=== PATIENT | male | born 1955 | race Caucasian/White ===

== ENCOUNTER 2022-05-06 08:25 | Inpatient (IN) | payer MEDICARE, MEDICAID, SELFPAY ==
[2022-05-06] VITALS (7 sets, daily range): BP systolic 114–161; BP diastolic 59–93; PULSE 115–134; RESP 16–22; TEMP 36.6–37.1; O2SAT 94–97
--- NOTE | 2022-05-06 | ECG_ITS ---
Test Reason : HIGH HEART RATE Blood Pressure : / mmHG Vent. Rate : 132 BPM Atrial Rate : 132 BPM P-R Int : 158 ms QRS Dur : 088 ms QT Int : 278 ms P-R-T Axes : 047 050 062 degrees QTc Int : 411 ms Sinus tachycardia Otherwise normal ECG When compared with ECG of 06-MAY-2022 09:08, No significant changes seen Referred By: Jax Huntley Electronically Signed By:CHARO VEGAS
--- NOTE | ~2022-05-06 | XR_ITS ---
EXAMINATION: CHEST AND LEFT HIP. WITH PELVIS CLINICAL INFORMATION: Left hip pain after fall. COMPARISON: None TECHNIQUE: 2 views chest and AP pelvis and left of 4 views. FINDINGS: AP pelvis and left hip: There is fracture left femoral neck with medial angulation. There is no dislocation. The right hip joint space is maintained normal. SI joints are normal. No additional fracture seen involving the pelvic bone. CHEST: There is elevated left hemidiaphragm and underlying atelectasis. Rest lungs are clear. The heart size and pulmonary vascularity is normal. No bony abnormality seen. XR/XR chest 1V IMPRESSION: The left femoral neck fracture with medial angulation. No dislocation. No acute process seen in the chest. The left diaphragm is elevated
--- NOTE | ~2022-05-06 | CT_ITS ---
EXAMINATION: CT BRAIN AND CT CERVICAL SPINE WITHOUT CONTRAST. CLINICAL INFORMATION: Unwitnessed fall COMPARISON: None TECHNIQUE: 5 mm thin axial and reformatted 2 mm thin coronal and sagittal images of brain were obtained. Subsequently 3 mm thin and axial 2 mm thin sagittal coronal images of cervical spine were obtained. DLP 883. FINDINGS: Brain: There is no acute intra-axial, extra-axial bleed, masses or midline shift there is no acute infarction evolution. There is no edema. There is moderate cerebellar volume loss also visualized is loss of right temporal lobe volume likely old insult. There is mild dilatation of right temporal horn. The lateral ventricles are otherwise symmetrical but slightly prominent. Bone windows reveal no calvarial abnormality. There is no scalp soft tissue abnormality.. Cervical spine: There is normal cervical lordosis. The vertebral heights, alignment and disc heights are normal. No visible acute fracture, dislocation or subluxation seen. The craniovertebral junction and the C1-C2 alignment is normal. There is mild ventral spondylosis C6-7 and C7-T1 disc levels. CT/CT cervical spine wo con IMPRESSION: No acute intracranial process seen. Moderate cerebral are atrophy. Right temporal lobe atrophy likely secondary to old injury or insult. There is no acute fracture or dislocation cervical spine.
--- NOTE | ~2022-05-06 | CT_ITS ---
EXAMINATION: CT BRAIN AND CT CERVICAL SPINE WITHOUT CONTRAST. CLINICAL INFORMATION: Unwitnessed fall COMPARISON: None TECHNIQUE: 5 mm thin axial and reformatted 2 mm thin coronal and sagittal images of brain were obtained. Subsequently 3 mm thin and axial 2 mm thin sagittal coronal images of cervical spine were obtained. DLP 883. FINDINGS: Brain: There is no acute intra-axial, extra-axial bleed, masses or midline shift there is no acute infarction evolution. There is no edema. There is moderate cerebellar volume loss also visualized is loss of right temporal lobe volume likely old insult. There is mild dilatation of right temporal horn. The lateral ventricles are otherwise symmetrical but slightly prominent. Bone windows reveal no calvarial abnormality. There is no scalp soft tissue abnormality.. Cervical spine: There is normal cervical lordosis. The vertebral heights, alignment and disc heights are normal. No visible acute fracture, dislocation or subluxation seen. The craniovertebral junction and the C1-C2 alignment is normal. There is mild ventral spondylosis C6-7 and C7-T1 disc levels. CT/CT head/brain wo con IMPRESSION: No acute intracranial process seen. Moderate cerebral are atrophy. Right temporal lobe atrophy likely secondary to old injury or insult. There is no acute fracture or dislocation cervical spine.
--- NOTE | ~2022-05-06 | XR_ITS ---
EXAMINATION: XR CHEST CLINICAL INFORMATION: Shortness of breath. COMPARISON: 05/06/2022 chest radiograph. TECHNIQUE: Frontal view of the chest was obtained. FINDINGS: There is minimal blunting of the costophrenic angles bilaterally with mild superjacent linear markings. The upper lung rosales are clear. Mild biapical pleural thickening is noted. The heart and mediastinal structures are unremarkable. Mild thoracolumbar scoliosis. XR/XR chest 1V IMPRESSION: Mild bibasilar atelectasis. Very small pleural effusions cannot be excluded.
--- NOTE | ~2022-05-06 | XR_ITS ---
EXAMINATION: CHEST AND LEFT HIP. WITH PELVIS CLINICAL INFORMATION: Left hip pain after fall. COMPARISON: None TECHNIQUE: 2 views chest and AP pelvis and left of 4 views. FINDINGS: AP pelvis and left hip: There is fracture left femoral neck with medial angulation. There is no dislocation. The right hip joint space is maintained normal. SI joints are normal. No additional fracture seen involving the pelvic bone. CHEST: There is elevated left hemidiaphragm and underlying atelectasis. Rest lungs are clear. The heart size and pulmonary vascularity is normal. No bony abnormality seen. XR/XR hip LT w PEL1V IMPRESSION: The left femoral neck fracture with medial angulation. No dislocation. No acute process seen in the chest. The left diaphragm is elevated
--- NOTE | ~2022-05-06 | CT_ITS ---
EXAMINATION: CT ANGIOGRAM OF THE CHEST WITH AND WITHOUT CONTRAST (CT PULMONARY ANGIOGRAM FOR PE) CLINICAL INFORMATION: Reason for Exam tachycardia in backdrop of femur fx COMPARISON: None TECHNIQUE: Prior to contrast administration, noncontrast localization images were obtained. Subsequently, multidetector volumetric imaging was performed from the thoracic inlet to below the diaphragms following the administration of 65 mL Omnipaque 350 intravenous contrast. No contrast reaction reported Sagittal, coronal, and MIP oblique sagittal reformatted images were obtained on the CT workstation, uploaded to PACS, and reviewed. This CT examination was performed using dose optimization techniques as appropriate, variously including the following: *Automated exposure control *Adjustment of mA and/or kV according to patient size (this includes techniques or standardized protocols for targeted exams where dose is matched to indication/reason for exam; i.e. extremities or head) *Use of iterative reconstruction technique Total exam dose-length product 352 mGy-cm FINDINGS: QUALITY OF STUDY/CONTRAST BOLUS: Suboptimal. Respiratory motion artifact and suboptimal opacification of the pulmonary arterial tree. PULMONARY ARTERIES: Question of filling defects versus artifact in segmental branches the bilateral upper lobes, lingula, right middle lobe (please see infante images). No definite or more central pulmonary emboli. Normal caliber central pulmonary trunk measuring 2.7 cm in diameter. THORACIC AORTA: No aneurysm or dissection. LUNG: Low lung volumes with bibasilar atelectasis. No suspicious pulmonary nodule or mass. Central airways are grossly clear. PLEURA: No pleural effusion or pneumothorax. MEDIASTINUM: No cardiomegaly. No pericardial effusion. No mediastinal or hilar lymphadenopathy. No evidence of septal bowing or right heart strain. CHEST WALL/AXILLA: No axillary or internal mammary lymphadenopathy. OSSEOUS STRUCTURES: No acute or suspicious osseous abnormality. UPPER ABDOMEN: Calcified granuloma in the anterior right liver lobe. Status post cholecystectomy. Surgical clips in the gallbladder fossa. Possible small hiatal hernia. Remainder of the visualized upper abdominal viscera are grossly unremarkable. Chronic left clavicle fracture deformity. No acute fracture or suspicious osseous lesion. Multiple vertebral body hemangiomas are noted. Mild disc degenerative change in the thoracic and lower cervical spine. No reflux of contrast into the hepatic veins to suggest elevated right heart pressures. CT/CT angio chest PE protocol IMPRESSION: 1. Suboptimal evaluation for segmental pulmonary emboli for reasons as described. There are equivocal filling defects in segmental pulmonary arterial branches bilaterally which could be artifactual versus small nonocclusive emboli. 2. No more central/definite pulmonary embolus. 3. Low lung volumes with bibasilar atelectasis. VTE: indeterminate
--- NOTE | ~2022-05-06 | XR_ITS ---
EXAMINATION: XR HIP, LEFT CLINICAL INFORMATION: Left hip pain. COMPARISON: None TECHNIQUE: Single AP view of the left hip. FINDINGS: There is a subtle overlapping osseous fragment at the greater tuberosity which may represent the remnant of the previously seen intertrochanteric fracture now status post hemiarthroplasty. The head of the hemiarthroplasty prosthesis is appropriately situated. There is relatively deep placement of the femoral component on these images. Left innominate bone is intact. Bones are osteopenic. Lateral skin trace and soft tissue swelling. XR/XR hip LT 1V IMPRESSION: Status post left hemiarthroplasty without evidence of postop dislocation. A small residual fracture line suspected at the greater trochanter.
--- NOTE | ~2022-05-06 | NM_ITS ---
EXAMINATION: NM LUNG IMAGE PERFUSION CLINICAL INFORMATION: SOB and tachycardia COMPARISON: None TECHNIQUE: Following intravenous administration of 4 mCi of 99m Tc MAA, imaging of both lungs were obtained multiple projections. FINDINGS: On perfusion imaging there is normal flow seen to all segments of the lungs without any focal segmental, subsegmental or nonsegmental defect. The soft tissues are normal. Ventilation study was not performed. NM/NM pul perfusion IMPRESSION: Unremarkable perfusion exam.
--- NOTE | 2022-05-06 09:07 | ECG_ITS ---
Test Reason : fall Blood Pressure : / mmHG Vent. Rate : 115 BPM Atrial Rate : 115 BPM P-R Int : 170 ms QRS Dur : 094 ms QT Int : 318 ms P-R-T Axes : 069 -62 078 degrees QTc Int : 439 ms Sinus tachycardia Leftward axis Borderline ECG No previous ECGs available Referred By: Janice Sharp Electronically Signed By:CHARO VEGAS
--- NOTE | 2022-05-06 09:15 | ED_ITS ---
HPI - Fall General Chief Complaint: Fall Stated Complaint: HIP S/P FALL PER EMS Time Seen by Provider: 05/06/22 08:54 Source: patient and other (Caregiver) Mode of arrival: EMS Limitations: physical limitation (MR) History of Present Illness HPI Narrative: Patient presents to the emergency department with his caregiver via EMS for evaluation after a fall. Per patient's senior resident care director, she found him on the floor in his bedroom this morning, patient noted to have both legs into 1 patient with his pafito, reporting pain to the left hip, was unable to get up. Patient denies hitting his head or having loss of consciousness, however caregiver does report that he has a history of MR and epilepsy. He is unsure as to why he fell. Currently his only complaint is pain to the left hip and thigh with movement of the leg. His caregiver provided Tylenol at home. MD complaint: fall Onset (ago): hour(s) Fall witnessed: no Place fall occurred: home Related Data Home Medications Medication Instructions Recorded Confirmed lacosamide 200 mg tablet 1 tab PO BID 05/06/22 05/06/22 levetiracetam 1,000 mg tablet 1 tab PO BID 05/06/22 05/06/22 levetiracetam 750 mg tablet 1 tab PO BID 05/06/22 05/06/22 multivitamin with folic acid 400 1 tab PO DAILY 05/06/22 05/06/22 mcg tablet (Daily-[place] (with folic acid)) omeprazole 40 mg capsule,delayed 1 cap PO DAILY 05/06/22 05/06/22 release trazodone 100 mg tablet 1 tab PO BEDTIME 05/06/22 05/06/22 Allergies Allergy/AdvReac Type Severity Reaction Status Date / Time No Known Allergies Allergy Verified 05/06/22 09:00 Review of Systems Review of Systems: Constitutional: No weight loss. No fever. No chills. No weakness. No fatigue. Skin: No rash. No itching. Cardiovascular: No chest pain. No chest pressure. No palpitations. No pedal edema. Respiratory: No shortness of breath. No cough. No sputum production. Gastrointestinal: No anorexia. No nausea. No vomiting. No diarrhea. No abdominal pain. Genitourinary: No burning micturition. No urinary frequency. No incontinence. Neurologic: No headache. No dizziness. No pre-syncope/ syncope. No unilateral weakness. No ataxia. No numbness. No tingling. No change in bowel or bladder control. Musculoskeletal: No muscle pain. No back pain. Positive hip pain. No stiffness. Endocrine: No polyuria. No polydipsia. [facility] Past Medical History Attestation statement: The following information was validated with the patient. Source: old records reviewed Medical History (Updated 05/06/22 @ 13:01 by Yoshi Shaikh MD) Fountain esophagus Epilepsy Legally blind Surgical History Hx of cholecystectomy Social History Social History Alcohol intake: never Patient Tobacco Use Status: Never used Tobacco Use of substances other than those prescribed or required for medical reasons: No Advance Directives: Yes Advance Directives on File: Yes Advance Directives Date on File: 04/22/17 Physical Exam Vital Signs: Vital Signs: Last Vital Signs Temp 98.6 F 05/06/22 13:17 Pulse 115 H 05/06/22 16:25 Resp 20 05/06/22 16:25 BP 149/89 H 05/06/22 16:25 Pulse Ox 97 05/06/22 16:25 O2 Del Method 05/06/22 16:25 BMI result Body Mass Index 0.0 Vital signs have been reviewed and appeared to be correct. Hypertensive. Tachycardic.? Respiration rate normal. Temperature normal.? Oxygen saturation normal. Appearance: Alert.?Oriented to person, place and time. No acute distress.?Normal affect. Eyes: Pupils equal, round and reactive to light.? ENT: Pharynx normal.?? Neck: Normal inspection.? Neck supple.??No midline cervical spine tenderness, step-offs, deformities CVS: Heart sounds normal. Sinus tachycardia. Pulses normal.?? Respiratory: No respiratory distress.? Lung sounds clear to auscultation bilaterally?? Abdomen: Soft and non-tender. Normoactive bowel sounds. No pulsatile mass.?? Skin: Skin warm and dry.? Normal skin color.? Extremities: No lower extremity edema.? No calf ttp. Left lower extremity with shortening, no rotation, palpable 2+ DP/PT pulse bilaterally. Palpable tenderness along the left lateral hip and thigh. Neuro: Moves all extremities spontaneously. Sensation intact bilaterally. CN II- XII intact. No focal neuro deficits. NIH Stroke Scale Internal: Initial- Upon Arrival Level of Consciousness: Alert Level of Consciousness Questions: Answers both questions correctly Level of Consciousness Commands: Performs both tasks correctly Best Gaze: Normal Visual: No visual loss Facial Palsy: Normal Motor Arm (Right): No drift Motor Arm (Left): No drift Motor Leg (Right): No drift Motor Leg (Left): No drift Limb Ataxia: Absent Sensory: Normal Best Language: No aphasia Dysarthia: Normal Extinction and Inattention: No abnormality Score: 0 Course Course Course Narrative: Patient is a 66-year-old male with a history of MR, epilepsy presenting to emergency department for evaluation after an unwitnessed fall. Patient is present with his senior project manager who the patient resides with. Lb patient on floor this morning. Patient noted to be mildly hypertensive and tachycardic, EKG reveals a sinus tachycardia nonspecific inverted T wave in aVL. Will obtain CBC to evaluate for leukocytosis/ anemia, CMP to evaluate for abnormal electrolytes /abnormal renal function/ abnormal hepatic function, troponin to evaluate for ischemia/ACS. Chest x-ray to evaluate for consolidation/ infiltrate/ mass/ pulmonary congestion. Urinalysis to evaluate for infection. XR the left hip and pelvis to evaluate for fracture dislocation. CT of the head and cervical spine to evaluate for ICH/SAH/fracture or subluxation Reevaluation(s) Reevaluation #1: XR reveals a left femoral neck fracture with medial angulation, no dislocation. Spoke with Orthopedics Marquis Garcia who recommends admission to medicine service, and will come to evaluate patient. Time: 10:42 Reevaluation #2: CBC reveals a normocytic anemia hemoglobin 12.5 hematocrit 34.4. CMP reveals hyponatremia, mild hyperglycemia, corrected sodium level of 128, no neurological deficits. Given hyponatremia in addition to mild tachycardia, suspect dehydration, patient to receive 1 L normal saline IV fluid. Spoke with hospitalist service, patient for admission to medicine by Dr. Shaikh Time: 12:01 MDM - Fall Medical Records Attestation: I reviewed the patient's medical records. Lab Data Attestation: I reviewed the patient's lab results. Result diagrams: 05/06/22 11:15 05/06/22 11:15 Labs: Lab Results 05/06/22 05/06/2205/06/22 Range/Units 11:15 11:15 11:15 WBC 5.5 (4.8-10.8) X10*3/uL RBC 3.91 L (4.60-5.80) X10*6/uL Hgb 12.5 L (14.0-18.0) g/dl Hct 34.4 L (42.0-52.0) % MCV 88.0 (80.0-98.0) fL MCH 32.0 (27.0-33.0) pg MCHC 36.3 H (31.0-36.0) g/dl RDW 11.9 (11.0-16.0) % Plt Count 281 (160-400) X10*3/uL MPV 8.6 L (9.4-12.4) fL Immature Gran % (Auto) 0.4 (0.0-0.4) % Neut % (Auto) 82.8 H (45-73) % Lymph % (Auto) 5.1 L (20-40) % [place] % (Auto) 11.7 H (2-11) % Eos % (Auto) 0.0 (0-4) % Baso % (Auto) 0.0 (0-2) % Lymph # (Auto) 0.3 L (1.2-4.9) X10*3/uL [place] # (Auto) 0.6 (0.1-1.2) X10*3/uL Eos # (Auto) 0.0 (0.0-0.4) X10*3/uL Baso # (Auto) 0.0 (0.0-0.2) X10*3/uL Abs Immat Gran (auto) 0.02 (0.00-0.03) X10*3/uL Absolute Neuts (auto) 4.5 (2.0-8.3) x10*3/uL Absolute Nucleated RBC 0.000 (0.0-0.012) X10*3/uL Nucleated RBC % (auto) 0.0 (0.0-0.2) /100WBC Sodium 127 L (135-145) mmol/L Potassium 5.1 (3.3-5.1) mmol/L Chloride 92 L (96-108) mmol/L Carbon Dioxide 28 (22-29) mmol/L Anion Gap 12 (12-20) BUN 16 (9-16) mg/dL Creatinine 0.85 (0.5-1.4) mg/dL Estim Creat Clear Calc 0.0 Estimated GFR > 60 Random Glucose 146 H (60-115) mg/dL Calcium 9.2 (8.4-10.2) mg/dL Magnesium 1.9 (1.6-2.6) mg/dL Total Bilirubin 0.5 (0.0-1.0) mg/dL AST 27 (5-37) U/L ALT 21 (0-40) U/L Alkaline Phosphatase 119 H (39-117) U/L Troponin I High Sens < 3.5 (<3.5-35.0) ng/L Total Protein 7.3 (6.5-8.0) g/dL Albumin 4.1 (3.5-5.0) g/dL COVID-19 (THALIA) (Negative) COVID-19 Clin Com 05/06/22 Range/Units 11:15 WBC (4.8-10.8) X10*3/uL RBC (4.60-5.80) X10*6/uL Hgb (14.0-18.0) g/dl Hct (42.0-52.0) % MCV (80.0-98.0) fL MCH (27.0-33.0) pg MCHC (31.0-36.0) g/dl RDW (11.0-16.0) % Plt Count (160-400) X10*3/uL MPV (9.4-12.4) fL Immature Gran % (Auto) (0.0-0.4) % Neut % (Auto) (45-73) % Lymph % (Auto) (20-40) % [place] % (Auto) (2-11) % Eos % (Auto) (0-4) % Baso % (Auto) (0-2) % Lymph # (Auto) (1.2-4.9) X10*3/uL [place] # (Auto) (0.1-1.2) X10*3/uL Eos # (Auto) (0.0-0.4) X10*3/uL Baso # (Auto) (0.0-0.2) X10*3/uL Abs Immat Gran (auto) (0.00-0.03) X10*3/uL Absolute Neuts (auto) (2.0-8.3) x10*3/uL Absolute Nucleated RBC (0.0-0.012) X10*3/uL Nucleated RBC % (auto) (0.0-0.2) /100WBC Sodium (135-145) mmol/L Potassium (3.3-5.1) mmol/L Chloride (96-108) mmol/L Carbon Dioxide (22-29) mmol/L Anion Gap (12-20) BUN (9-16) mg/dL Creatinine (0.5-1.4) mg/dL Estim Creat Clear Calc Estimated GFR Random Glucose (60-115) mg/dL Calcium (8.4-10.2) mg/dL Magnesium (1.6-2.6) mg/dL Total Bilirubin (0.0-1.0) mg/dL AST (5-37) U/L ALT (0-40) U/L Alkaline Phosphatase (39-117) U/L Troponin I High Sens (<3.5-35.0) ng/L Total Protein (6.5-8.0) g/dL Albumin (3.5-5.0) g/dL COVID-19 (THALIA) Negative (Negative) COVID-19 Clin Com See Note Imaging Data hip XR: Radiologist's impression: XR/XR hip LT w PEL1V IMPRESSION: The left femoral neck fracture with medial angulation. No dislocation. Chest x-ray: Radiologist's impression: XR/XR chest 1V IMPRESSION: No acute process seen in the chest. The left diaphragm is elevated? CT scan - head: Radiologist's impression: CT/CT head/brain wo con IMPRESSION: No acute intracranial process seen. ? Moderate cerebral are atrophy. Right temporal lobe atrophy likely secondary to old injury or insult. ? There is no acute fracture or dislocation cervical spine.? ECG Data Attestation: I personally reviewed and interpreted this ECG as follows: ECG interpretation date: 05/06/22 Prior ECG tracings: not available for review Interpretation: Rate: 115 Rhythm: Sinus tachycardia? Sabina:? Normal Normal P waves.? Normal LUPIS.?? Normal QRS complex.?? ST T wave :??No ST elevation, no ST depression, T-wave inversion of aVL qTC: 439 The study has been interpreted contemporaneously by me. Discharge Plan Discharge Clinical Impression: Closed fracture of neck of left femur Patient Disposition: Admitted As Inpatient
[2022-05-06 11:21] LABS: MANUAL DIFF FLAG NO
--- NOTE | 2022-05-06 11:28 | PC.NURSE ---
patient alert/oriented to baseline, monitor technician sinus tach, vss, denies pain to lle, + cms/pulses to lle, doppler pulses marked to pedal and post tib.
[2022-05-06 11:46] LABS: Alanine Aminotransferase 21 U/L (0-40); Albumin Level 4.1 g/dL (3.5-5.0); Alkaline Phosphatase 119 U/L (39-117); Anion Gap 12 (12-20); Aspartate Amino Transferase 27 U/L (5-37); Bilirubin Total 0.5 mg/dL (0.0-1.0); Blood Urea Nitrogen 16 mg/dL (9-16); COVID-19 Test Negative (Negative); Calcium 9.2 mg/dL (8.4-10.2); Carbon Dioxide 28 mmol/L (22-29); Chloride 92 mmol/L (96-108); Estimated Glomerular Filt Rate > 60; Glucose Random 146 mg/dL (60-115); Magnesium 1.9 mg/dL (1.6-2.6); Potassium 5.1 mmol/L (3.3-5.1); Sodium 127 mmol/L (135-145); Total Protein 7.3 g/dL (6.5-8.0)
[2022-05-06 11:47] LABS: Hematocrit 34.4 % (42.0-52.0); Hemoglobin 12.5 g/dl (14.0-18.0); Imm Gran Abs Auto 0.02 X10*3/uL (0.00-0.03); Imm Gran Pct Auto 0.4 % (0.0-0.4); Lymphocytes Absolute Auto 0.3 X10*3/uL (1.2-4.9); Lymphocytes Percent Auto 5.1 % (20-40); Mean Corpuscular HGB Conc 36.3 g/dl (31.0-36.0); Mean Platelet Volume 8.6 fL (9.4-12.4); Monocytes Absolute Auto 0.6 X10*3/uL (0.1-1.2); Monocytes Percent Auto 11.7 % (2-11); Neutrophils Absolute Auto 4.5 x10*3/uL (2.0-8.3); Neutrophils Percent Auto 82.8 % (45-73); Platelet Count 281 X10*3/uL (160-400); Red Blood Count 3.91 X10*6/uL (4.60-5.80); Red Cell Distribution Width 11.9 % (11.0-16.0); White Blood Count 5.5 X10*3/uL (4.8-10.8)
[2022-05-06 11:50] LABS: Troponin-I High Sensitivity < 3.5 ng/L (<3.5-35.0)
[2022-05-06] MEDS: 0.9 % Sodium Chloride 1,000 ML 999 ML IV (12:21)
--- NOTE | 2022-05-06 12:23 | P.HPOP_ITS ---
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 Patient lives with his caretakers family which includes Beatriz who is at bedside and her . Patient has a past medical history significant for epilepsy and cognitive impairment. Patient is also legally blind. Patient's logging truck driver denies any anticoagulation use. States that he ambulates without a walker. X- rays obtained the emergency department reveal a left femoral neck fracture. The patient was admitted to the medicine service and Orthopedics was consulted for further evaluation and treatment. <Jeannine Gibson PA-C - Last Filed: 05/06/22 12:27> Review of Systems Review of Systems: Yes Unobtainable due to mental status <Jeannine Gibson PA-C - Last Filed: 05/06/22 12:27> REPLACED BY [facility] Past Medical History Medical History: Medical History (Updated 05/06/22 @ 13:01 by Yoshi Shaikh MD) Fountain esophagus Epilepsy Legally blind <Jeannine Gibson PA-C - Last Filed: 05/06/22 12:27> Surgical History Surgical History: Surgical History Hx of cholecystectomy <Jeannine Gibson PA-C - Last Filed: 05/06/22 12:27> Social History Social History: Social History Alcohol intake: never Patient Tobacco Use Status: Never used Tobacco Use of substances other than those prescribed or required for medical reasons: No Advance Directives: Yes Advance Directives on File: Yes Advance Directives Date on File: 04/22/17 <JOSÉ ANTONIO QuintanaC - Last Filed: 05/06/22 12:27> Meds Allergies/Adverse reactions: Allergies Allergy/AdvReac Type Severity Reaction Status Date / Time No Known Allergies Allergy Verified 05/06/22 09:00 <Jeannine Gibson PA-C - Last Filed: 05/06/22 12:27> Active Medications: Current Medications Sodium Chloride (Ns) 1,000 mls @ 999 mls/hr IV .Q1H1M CINDY Stop: 05/06/22 13:00 Last Admin: 05/06/22 12:21 Dose: 999 mls/hr Pharmacy Consult (Consult Rx Perform Med Rec) 1 each MISCELLANE ONCE PRN PRN Reason: Consult order <Jeannine Gibson PA-C - Last Filed: 05/06/22 12:27> Home medications: Home Medications Medication Instructions Recorded Confirmed Last Taken Type lacosamide 200 mg tablet 1 tab PO BID 05/06/22 05/06/22 05/06/22 History levetiracetam 1,000 mg tablet 1 tab PO BID 05/06/22 05/06/22 05/06/22 History levetiracetam 750 mg tablet 1 tab PO BID 05/06/22 05/06/22 05/06/22 History multivitamin with folic acid 400 1 tab PO DAILY 05/06/22 05/06/22 05/06/22 History mcg tablet (Daily-[place] (with folic acid)) omeprazole 40 mg capsule,delayed 1 cap PO DAILY 05/06/22 05/06/22 05/06/22 History release trazodone 100 mg tablet 1 tab PO BEDTIME 05/06/22 05/06/22 05/05/22 History <Jeannine Gibson PA-C - Last Filed: 05/06/22 12:27> Physical Exam Vital Signs: Vital Signs: Last Vital Signs Temp 97.9 F 05/06/22 08:55 Pulse 118 H 05/06/22 10:53 Resp 18 05/06/22 10:53 BP 143/88 H 05/06/22 10:53 Pulse Ox 94 05/06/22 10:53 O2 Del Method 05/06/22 10:53 BMI result Body Mass Index 0.0 <Jeannine Gibson PA-C - Last Filed: 05/06/22 12:27> Const: General: cooperative, healthy appearing, comfortable, no acute distress, well developed, alert and awake <Jeannine Cantrell JOSÉ ANTONIO GibsonC - Last Filed: 05/06/22 12:27> HEENT: Head: Yes normal to inspection, Yes normocephalic and Yes atraumatic <Jeannine Cantrell JOSÉ ANTONIO GibsonC - Last Filed: 05/06/22 12:27> Eyes: General: appearance normal, both eyes and all related structures <Jeannine Cantrell VITALIY Gibson-C - Last Filed: 05/06/22 12:27> Neck: Neck: Yes normal visual inspection and Yes no lymphadenopathy <Jeannine Cantrell JOSÉ ANTONIO GibsonC - Last Filed: 05/06/22 12:27> Resp: Effort & Inspection: normal respiratory effort and able to speak in complete sentences <Jeannine Óscar JOSÉ ANTONIO GibsonC - Last Filed: 05/06/22 12:27> Cardio: Rate: regular rate <Jeannine Cantrell VITALIY GibsonPrincessC - Last Filed: 05/06/22 12:27> Peripheral pulses: Peripheral pulses 2+ throughout <Jeannine Cantrell JOSÉ ANTONIO GibsonC - Last Filed: 05/06/22 12:27> GI: Inspection: Yes normal to inspection <Jeannine Cantrell JOSÉ ANTONIO GibsonC - Last Filed: 05/06/22 12:27> Palpation (GI): Soft to palpation <Jeannine Cantrell JOSÉ ANTONIO GibsonC - Last Filed: 05/06/22 12:27> Skin: General skin exam: no rashes or lesions noted <Jeannine Óscar JOSÉ ANTONIO GibsonC - Last Filed: 05/06/22 12:27> Extrem: Other: Left hip skin intact with no abrasions or lesions. Left lower extremity shortened and externally rotated. NVI. <Jeannine Óscar JOSÉ ANTONIO GibsonC - Last Filed: 05/06/22 12:27> Results Labs Result Diagrams: : 05/06/22 11:15 05/06/22 11:15 <JOSÉ ANTONIO QuintanaC - Last Filed: 05/06/22 12:27> Labs: Abnormal lab results 05/06/22 05/06/22 Range/Units 11:15 11:15 RBC 3.91 L (4.60-5.80) X10*6/uL Hgb 12.5 L (14.0-18.0) g/dl Hct 34.4 L (42.0-52.0) % MCHC 36.3 H (31.0-36.0) g/dl MPV 8.6 L (9.4-12.4) fL Neut % (Auto) 82.8 H (45-73) % Lymph % (Auto) 5.1 L (20-40) % [place] % (Auto) 11.7 H (2-11) % Lymph # (Auto) 0.3 L (1.2-4.9) X10*3/uL Sodium 127 L (135-145) mmol/L Chloride 92 L (96-108) mmol/L Random Glucose 146 H (60-115) mg/dL Alkaline Phosphatase 119 H (39-117) U/L H & H 05/06/22 Range/Units 11:15 Hgb 12.5 L (14.0-18.0) g/dl Hct 34.4 L (42.0-52.0) % All other labs normal. <Jeannine Gibson PA-C - Last Filed: 05/06/22 12:27> Assessment and Plan (1) Displaced fracture of left femoral neck: Status: Acute <Jeannine Gibson PA-C - Last Filed: 05/06/22 12:27> I discussed the case with Dr. Chavira and explained the extent of the injury to the patient's caregiver Beatriz and options available which include surgical intervention. I explained the procedure in detail along with the length of recovery and rehab course. I explained the risk, benefits and alternatives. Risk including, but not limited to infection, blood clots, bleeding, non union or malunion and nerve/tissue damage to surrounding areas. I answered all their questions and with their understanding they have consented to move forward with Operative Fixation of left hip. The patient will be T&S, med clearance obtained and NPO after midnight. Beatriz signs the patients consents [phone] <Jeannine Gibson PA-C - Last Filed: 05/06/22 12:27> Quality Stroke Does the patient have a stroke diagnosis?: No <Jeannine Gibson PA-C - Last Filed: 05/06/22 12:27> VTE Prior VTE?: No <Jeannine Gibson PA-C - Last Filed: 05/06/22 12:27> VTE Risk Level:: Medical - moderate - high <Jeannine Gibson PA-C - Last Filed: 05/06/22 12:27> VTE Device Contraindication: N/A - Device Ordered <Jeannine Gibson PA-C - Last Filed: 05/06/22 12:27> VTE Drug Contraindication: N/A - Med Ordered <Jeannine Gibson PA-C - Last Filed: 05/06/22 12:27> Procedures Date of Service Date of Service: 05/06/22 <Jeannine Gibson PA-C - Last Filed: 05/06/22 12:27>
--- NOTE | 2022-05-06 12:52 | PM.IMHP ---
History of Present Illness Date of Service: 05/06/22 Chief Complaint: fall This is an 66 yo M with a PMH of Epilepsy, intellectual disability (per ED documentation), Henriquez's esophagus, legal blindness, who has lives with his senior java programmer analyst / guardian who presented to the ED with complaints of L hip pain which began shortly before presentation. Due to the patient's baseline mental status, history is obtained from him + the caregiver. Per caregiver, the patient was found on the side of his bed. THe patient himself reports, overnight, he went to get a glass of water and ended up falling out of the bed. Per caregiver, the patient had woken up earlier in the middle of the night to urinate. When he was found after the fall -- both of his feet were in 1 pant leg and hence it was felt that this was the reason for his fall. There are no reports of seizure type activity and per the caregiver, the patient's seizure are triggered by loud sounds and happend very infrequently. He is on Keppra and Vimpat for this. THere are no reports of CAD. No anginal symptoms. No fevers or chills. He has been vaccinated for COVID. Upon arrival to the ED, imaging studies showed a L fem neck fx with medical angulation. Ortho was consulted and recommended admission to medicine. He was also noted to be mildly hyponatremic and has been given 1L NS. Pt is see and examined in the ED. He reports no current pain. Flap Presser is bedside who provides most of the history Review of Systems Review of Systems: negative except HPI [facility] Medical History (Updated 05/06/22 @ 13:01 by Yoshi Shaikh MD) Henriquez esophagus Epilepsy Legally blind Pertinent family history: Flap Presser denies any FH Surgical History Hx of cholecystectomy Social History Alcohol intake: never Patient Tobacco Use Status: Never used Tobacco Use of substances other than those prescribed or required for medical reasons: No Advance Directives: Yes Advance Directives on File: Yes Advance Directives Date on File: 04/22/17 Meds Allergies Allergy/AdvReac Type Severity Reaction Status Date / Time No Known Allergies Allergy Verified 05/06/22 09:00 Active Medications: Current Medications Sodium Chloride (Ns) 1,000 mls @ 999 mls/hr IV .Q1H1M CINDY Stop: 05/06/22 13:00 Last Admin: 05/06/22 12:21 Dose: 999 mls/hr Cefazolin Sodium/Dextrose (Ancef) 2 gm in 50 mls @ 100 mls/hr IV PREOP ONE Stop: 05/06/22 12:56 Pharmacy Consult (Consult Rx Perform Med Rec) 1 each MISCELLANE ONCE PRN PRN Reason: Consult order Physical Exam Vital Signs and Narrative: Vital Signs: Last Vital Signs Temp 97.9 F 05/06/22 08:55 Pulse 118 H 05/06/22 10:53 Resp 18 05/06/22 10:53 BP 143/88 H 05/06/22 10:53 Pulse Ox 94 05/06/22 10:53 O2 Del Method 05/06/22 10:53 BMI result Body Mass Index 0.0 Const: Other: Constitutional - Awake and Alert, No apparent distress Eyes - Eyes closed Cardiovascular - S1S2, RRR, No edema Respiratory - Normal lung expansion, Normal respiratory effort, No respiratory distress, CTA bilaterally Gastrointestinal - NT / ND; +BS; No rebound or guarding - No CVA tenderness Extremities - no calf tenderness bilaterally, no swelling Musculoskeletal - Normal inspection, normal ROM Skin - Warm/Dry Neurological - No focal deficits, moving all 4 limbs except LLE due to pain Results Labs CBC and Chem 7: 05/06/22 11:15 05/06/22 11:15 Labs: Laboratory Results - last 24 hr 05/06/22 05/06/22 05/06/22 11:15 11:15 11:15 MCV 88.0 MCH 32.0 MCHC 36.3 H RDW 11.9 Plt Count 281 MPV 8.6 L Immature Gran % (Auto) 0.4 Neut % (Auto) 82.8 H Lymph % (Auto) 5.1 L [place] % (Auto) 11.7 H Eos % (Auto) 0.0 Baso % (Auto) 0.0 Lymph # (Auto) 0.3 L [place] # (Auto) 0.6 Eos # (Auto) 0.0 Baso # (Auto) 0.0 Abs Immat Gran (auto) 0.02 Absolute Neuts (auto) 4.5 Absolute Nucleated RBC 0.000 Nucleated RBC % (auto) 0.0 Anion Gap 12 Estim Creat Clear Calc 0.0 Estimated GFR > 60 Random Glucose 146 H Calcium 9.2 Magnesium 1.9 Total Bilirubin 0.5 AST 27 ALT 21 Alkaline Phosphatase 119 H Troponin I High Sens < 3.5 Total Protein 7.3 Albumin 4.1 COVID-19 (THALIA) COVID-19 Clin Com 05/06/22 11:15 MCV MCH MCHC RDW Plt Count MPV Immature Gran % (Auto) Neut % (Auto) Lymph % (Auto) [place] % (Auto) Eos % (Auto) Baso % (Auto) Lymph # (Auto) [place] # (Auto) Eos # (Auto) Baso # (Auto) Abs Immat Gran (auto) Absolute Neuts (auto) Absolute Nucleated RBC Nucleated RBC % (auto) Anion Gap Estim Creat Clear Calc Estimated GFR Random Glucose Calcium Magnesium Total Bilirubin AST ALT Alkaline Phosphatase Troponin I High Sens Total Protein Albumin COVID-19 (THALIA) Negative COVID-19 Clin Com See Note Imaging Radiologist's Impressions: Impressions Cervical Spine CT 05/06/22 09:42 IMPRESSION: No acute intracranial process seen. Moderate cerebral are atrophy. Right temporal lobe atrophy likely secondary to old injury or insult. There is no acute fracture or dislocation cervical spine. Head CT 05/06/22 09:42 IMPRESSION: No acute intracranial process seen. Moderate cerebral are atrophy. Right temporal lobe atrophy likely secondary to old injury or insult. There is no acute fracture or dislocation cervical spine. Chest X-Ray 05/06/22 09:56 IMPRESSION: The left femoral neck fracture with medial angulation. No dislocation. No acute process seen in the chest. The left diaphragm is elevated Hip/Pelvis X-Ray 05/06/22 09:56 IMPRESSION: The left femoral neck fracture with medial angulation. No dislocation. No acute process seen in the chest. The left diaphragm is elevated Assessment and Plan (1) Displaced fracture of left femoral neck: Status: Acute Plan This is a 66 yo M with a PMH of Epilepsy, henriquez's esophagus, legal blindness, intellectual disability who presents to the ED with left hip pain and fracture which began after what appears to be a mechanical fall. Patient will be admitted for further evaluation. 1. L fem neck fracture ortho consulted -- plan for operative repair pre-op eval --> EKG showing LAFB, no prior EKG to compare. Although his fall is likely mechanical in nature, given unwitnessed and pt with limited history -- will monitor on tele, get 2d echo and cardiology consult NPO after midnight 2. Hyponatremia mild, likely hypovoluemic gentle IVF monitor lytes 3. Seizure disorder per senior java programmer analyst -- on keppra and vimpat; start once med rec completed 4. Henriquez's esophagus resume home meds once med rec completed. D/w the senior java programmer analyst -- she is unsure what his code status is, but believes DNR/DNI (order placed on EMR). Requested senior java programmer analyst to bring in HCP / code status paperwork. DVT pptx -- mechanical for now; pharmacologic once surgery completed. Due to the patient's hip fracture, I anticipate a medically necessary inpatient hospitalization likely to span at least 2 midnights for further management. This cannot be completed in a less acute setting. Quality Stroke Does the patient have a stroke diagnosis?: No VTE Prior VTE?: No VTE Risk Level:: Medical - moderate - high VTE Device Contraindication: N/A - Device Ordered VTE Drug Contraindication: Treatment Not Indicated
--- NOTE | 2022-05-06 14:14 | PHA.MEDREC ---
Pharmacy Consult ? Medication Reconciliation Pharmacy has completed the medication reconciliation. Spoke with patient's erp engineer to confirm medications. She had pictures of the prescriptions on her phone. Patient takes both Keppra 1000 mg and 750 mg together. Reyna Allen, OtisD
--- NOTE | 2022-05-06 15:00 | CA_ITS ---
Transthoracic Echocardiogram Patient (Last, First, Middle): Darnell Osman, Gender: Male Date of : 1955 Age: 66 Procedure Date: 05/06/2022 Procedure Type: Transthoracic Echocardiogram Location: ER Height: 154.94 cm Weight: 58.97 kg BSA: 1.57 m2 Heart Rate: 134 bpm BP: 114 / 59 mmHg Spindle Plumber: SUMAYA Referring MD: Yoshi Shaikh MD Symptoms: hp fx, pre-op evaluation, abnormal EKG Study Quality: Fair ECG Rhythm: Sinus tachycardia Conclusions: - The left ventricular systolic function is hyperdynamic. The visually estimated ejection fraction is >70%. - No obvious valvular pathology seen on this study. Findings Procedure Information Contrast agent, definity, is being given per protocol without apparent complications. Left Ventricle Normal left ventricular cavity size. The left ventricular systolic function is hyperdynamic. The visually estimated ejection fraction is >70%. Diastolic function is indeterminate on the basis of available data. Wall motion abnormalities difficult to assess due to tachycardia, but grossly unremarkable. Suspect mild septal hypertrophy but difficult to assess. Right Ventricle The right ventricle was not well visualized. Atria Both atria are normal in size. Aortic Valve The aortic valve was not well visualized. There is mild calcification of the aortic valve. There is no aortic valve stenosis. There is no aortic valve regurgitation. Mitral Valve The mitral valve appears normal. There is no mitral valve regurgitation. There is no mitral valve stenosis. Pulmonic Valve The pulmonic valve was not well visualized. Tricuspid Valve There is trace tricuspid valve regurgitation. Tricuspid regurgitation envelope is inadequate for calculation of right ventricular systolic pressure. Great Vessels The asc aorta is normal in size. Venous The inferior vena cava is normal in size and collapses greater than 50% with inspiration. Pericardium/Pleural There is no evidence of pericardial effusion. Prior Study Comparison No prior study available for comparison. Recommendations, Care & Conclusions No obvious valvular pathology seen on this study. Measurements 2D Linear Measurements LVIDd: 3.00 3.9-5.3/4.2-5.9 cm LVIDd Index: 1.91 2.4-3.2/2.2-3.1 cm/m2 LVIDs: 1.99 2.0-3.6 cm LVPWd: 0.82 0.7-1.1 cm Ao Root: 0.00 2.1-3.5 cm LVOT Diam: 1.80 3.0+(-)1.3 cm 2D Systolic Function EF 4C: 81.90 >55% EF 2C: 71.80 >55% EF BiP: 77.70 >55% Aortic Valve AoV Pk Vishal: 1.45 AoV Mn Vishal: 1.13 AoV VTI: 0.23 AoV Pk Grad: 8.00 Aov Mn Grad: 6.00 DARRIAN Cont.VTI: 2.34 LVOT LVOT Pk Vishal: 1.32 LVOT Mn Vishal: 0.98 LVOT VTI: 0.21 LVOT Pk Grad: 7.00 LVOT Mn Grad: 4.00 LVOT Diam: 1.80 LVOT Area: 2.54 Tricuspid Valve RA Press: 3.00 Great Vessels Aorta Ao Root-2D: 0.00 2.0-3.7 cm Sinus of Valsalva: 3.40 2.0-3.5 cm Ao Asc: 3.50 2.1-3.4 cm Pulmonary Valve PV Pk Vishal: 1.40 Peak PV Grad: 8.00 Updated in Other Vendor System with Status of Final Antonio Eli MD electronically signed on 05/06/2022 4:55:55 PM with status of Final
[2022-05-06] MEDS: 0.9 % Sodium Chloride Flush 3 ML SYRINGE IVFLUSH ×2 (15:59→18:04)
--- NOTE | 2022-05-06 16:06 | PC.NURSE ---
Verbal order for delacruz insertion by who will enter order when he gets back to computer.
[2022-05-06] MEDS: Lidocaine HCl 2 % Urojet 10 ML JEL.PF.APP TOPICAL (18:05)
[2022-05-06] MEDS: 0.9 % Sodium Chloride 1,000 ML 75 ML IVCONT (18:05)
--- NOTE | 2022-05-06 19:02 | PC.NURSE ---
Addendum entered by Alyssa Whitten 05/07/22 07:09: report given to CHERRY Bernal Addendum entered by Alyssa Whitten 05/06/22 19:41: pt alert and oriented. resting in bed. pt denies any pain at this moment. pt HR flutuates between 136-145. Dr. Huntley made aware Original Note: report received from CHERRY Winkler
[2022-05-06 19:54] LABS: Appearance Urine CLEAR; Color Urine YELLOW; Glucose Urine UA NEG (NEG); Leukocyte Esterase Urine NEG (NEG); Nitrite Urine NEG (NEG); UACC Culture Trigger NO; Urine Blood 2+ (NEG); Urine Ketones 5 MG/DL (NEG); Urine Protein NEG (NEG-TRACE)
[2022-05-06 20:18] LABS: Bacteria Urine 3+ /LPF; Squamous Epithelial Cell Urine TRACE /LPF; UACC CULT YES
--- NOTE | 2022-05-06 21:19 | MHC.CM.PN ---
Addendum entered by Glo Kelly 05/06/22 21:31: IMM completed. Message left with guardian and CASE IMM completed. Copy left at bedside.Reviewed EMR. Pt ambulates independently. No DME. Unsure of services. Lives with guardian and her family. Expect pt will need STR at discharge. Unable to review d/c plan with guardian at this time. Message left. No referrals placed pending conversation with guardian. Will request guardianship copy when able to speak with guardian. CM to follow for d/c needs. Original Note: CM attempted to meet with patient. Pt is intellectually disabled and legally blind. Pt was able to tell CM he fell and that he lives with Beatriz. Unable to answer any other questions. CM explained that he would stay in the hospital and we would care for him. That he broke his hip and would have it fixed tomorrow. Call placed to Beatriz fritz ([phone]) with request to return call for admission questions. Guardianship not on file.. Unable to complete IMM at this time. CM to follow for d/c needs.
[2022-05-06] MEDS: Morphine Sulfate 4 MG/ML CARTRIDGE 3 MG IVPUSH (22:15)
--- NOTE | 2022-05-06 22:15 | PC.NURSE ---
patient bedding was soiled ,myself and nora ahmadi give care and reposition patient with pillows .
[2022-05-07] VITALS (8 sets, daily range): BP systolic 108–152; BP diastolic 59–91; PULSE 100–141; RESP 12–20; TEMP 36.8–38.2; O2SAT 92–97
[2022-05-07 03:44] LABS: Hematocrit 30.3 % (42.0-52.0); Hemoglobin 10.6 g/dl (14.0-18.0); Mean Corpuscular Hemoglobin 31.2 pg (27.0-33.0); Mean Corpuscular Volume 89.1 fL (80.0-98.0); Platelet Count 210 X10*3/uL (160-400); Red Cell Distribution Width 11.9 % (11.0-16.0); White Blood Count 4.2 X10*3/uL (4.8-10.8)
[2022-05-07 04:13] LABS: Anion Gap 11 (12-20); Blood Urea Nitrogen 18 mg/dL (9-16); Calcium 8.3 mg/dL (8.4-10.2); Carbon Dioxide 23 mmol/L (22-29); Chloride 99 mmol/L (96-108); Estimated Glomerular Filt Rate > 60; Glucose Random 130 mg/dL (60-115); Potassium 4.9 mmol/L (3.3-5.1); Sodium 128 mmol/L (135-145)
--- NOTE | 2022-05-07 09:29 | P.CONCA_ITS ---
History of Present Illness History of Present Illness Date of Service: 05/07/22 Chief complaint: Hip fracture, hyponatremia Narrative: This is a cardiology consultation regarding preoperative risk stratification for hip surgery. Seems to have a history of intellectual disability, epilepsy comparison self adjust and also has legal blindness. Admitted for hip pain. It seems that he was found on the side of his bed. Apparently went to get a glass of water and a falling out of bed. No reported seizure activity. From the initial evaluation, found to have left femoral neck fracture. Plan for surgery. Otherwise from the cardiac standpoint patient himself denies any specific issue s like coronary disease but I am not sure how reliable he is. Nothing listed in his medical history. At this time, he has denies any chest pain or shortness of breath or any other acute cardiac symptoms. He has been in sinus tachycardia for unclear reasons. Review of Systems Review of Systems: Yes all other systems are reviewed and are negative Constitutional: Constitutional: Reports as per HPI Eyes: Eyes: Reports as per HPI ENT: Reports as per HPI Cardiovascular: Cardiovascular: Reports as per HPI, Denies acrocyanosis, Denies cool extremities, Denies chest pain, Denies leg edema, Denies lightheadedness, Denies palpitations and Denies dyspnea Respiratory: Respiratory: Reports as per HPI, Reports no additional respiratory complaints and Denies dyspnea Gastrointestinal: Gastrointestinal: Reports as per HPI and Reports no additional gastrointestinal complaints Genitourinary: Genitourinary: Reports no additional male genitourinary complaints and Reports as per HPI Musculoskeletal: Musculoskeletal: Reports no additional musculoskeletal complaints and Reports as per HPI Integumentary/Breasts: Skin/Breast: Reports system reviewed and no additional complaints, except as docu Neurologic: Reports system reviewed and no additional complaints, except as documented and Reports as per HPI Psychiatric: Psychiatric: Reports no additional psychiatric complaints and Reports as per HPI Endocrine: Endocrine: Reports no additional endocrine complaints, Reports as per HPI and Denies palpitations Hematologic/Lymphatic: Hematologic/Lymphatic: Reports no additional hematologic/lymphatic complaints and Reports as per HPI Allergic/Immunologic: Allergic/Immunologic: Reports no additional allergic/immunologic complaints and Reports as per HPI PMF Past Medical History Medical History (Updated 05/07/22 @ 09:36 by Antonio Eli MD) Fountain esophagus Epilepsy Legally blind Family History Pertinent family history: Patient is not able to provide any significant family history. Surgical History Surgical History Hx of cholecystectomy Social History Social History Alcohol intake: never Patient Tobacco Use Status: Never used Tobacco Use of substances other than those prescribed or required for medical reasons: No Advance Directives: Yes Advance Directives on File: Yes Advance Directives Date on File: 04/22/17 service: No Current occupational status: disabled Meds Allergies Allergy/AdvReac Type Severity Reaction Status Date / Time No Known Allergies Allergy Verified 05/06/22 09:00 Active Medications: Current Medications Acetaminophen (Acetaminophen 325 Mg Tablet) 650 mg PO Q6H PRN PRN Reason: Pain, Mild (Pain Scale 1-3) Sodium Chloride (Ns) 1,000 mls @ 75 mls/hr IVCONT .[id number] CINDY Last Admin: 05/06/22 18:05 Dose: 75 mls/hr Sodium Chloride (Ns) 1,000 mls @ 500 mls/hr IVCONT .Q2H CINDY Stop: 05/07/22 10:59 Lacosamide (Lacosamide 100 Mg Tablet) 200 mg PO BID CINDY Levetiracetam (Levetiracetam 1,000 Mg Tablet) 1,000 mg PO BID CINDY Levetiracetam (Levetiracetam 500 Mg Tablet) 500 mg PO BID CINDY Levetiracetam (Levetiracetam 250 Mg Tablet) 250 mg PO BID [facility] Morphine Sulfate (Morphine Sulfate 4 Mg/Ml Cartridge) 3 mg IVPUSH Q3H PRN; Protocol PRN Reason: Pain, Severe (Pain Scale 7-10) Last Admin: 05/06/22 22:15 Dose: 3 mg Multivitamins/Vitamin C (Multivitamin Tablet) 1 tab PO DAILY CINDY Omeprazole (Omeprazole 40 Mg Capsule.Dr) 40 mg PO DAILY@0630 CINDY Ondansetron HCl (Ondansetron Hcl 4 Mg/2 Ml Vial) 4 mg IVPUSH Q8H PRN PRN Reason: Nausea and Vomiting Oxycodone HCl (Oxycodone Hcl Immed Release 5 Mg Tablet) 5 mg PO Q6H PRN PRN Reason: Pain, Moderate (Pain Scale 4-6 Pharmacy Consult (Consult Rx Perform Med Rec) 1 each MISCELLANE ONCE PRN PRN Reason: Consult order Sodium Chloride (0.9 % Sodium Chloride Flush 3 Ml Syringe) 3 ml IVFLUSH QSNYFT [facility] Last Admin: 05/06/22 18:04 Dose: 3 ml Trazodone HCl (Trazodone Hcl 100 Mg Tablet) 100 mg PO BEDTIME [facility] Home Medications Medication Instructions Recorded Confirmed Last Taken Type lacosamide 200 mg tablet 1 tab PO BID 05/06/22 05/06/22 05/06/22 History levetiracetam 1,000 mg tablet 1 tab PO BID 05/06/22 05/06/22 05/06/22 History levetiracetam 750 mg tablet 1 tab PO BID 05/06/22 05/06/22 05/06/22 History multivitamin with folic acid 400 1 tab PO DAILY 05/06/22 05/06/22 05/06/22 History mcg tablet (Daily-[place] (with folic acid)) omeprazole 40 mg capsule,delayed 1 cap PO DAILY 05/06/22 05/06/22 05/06/22 History release trazodone 100 mg tablet 1 tab PO BEDTIME 05/06/22 05/06/22 05/05/22 History Physical Exam Vital Signs: Vital Signs: Last Vital Signs Temp 98.5 F 05/07/22 09:19 Pulse 130 H 05/07/22 09:19 Resp 16 05/07/22 09:19 BP 125/89 05/07/22 09:19 Pulse Ox 95 05/07/22 09:19 O2 Del Method 05/07/22 09:19 BMI result Body Mass Index 0.0 Const: General: comfortable HEENT: Other: Unremarkable Head: Yes normal to inspection Neck: Neck: Yes normal visual inspection Chest: Chest palpation & inspection: normal inspection of the chest Resp: Auscultation: clear to auscultation bilaterally Cardio: Palpation: normal PMI Heart sounds: S1 normal heart sound present, S2 normal heart sound present, no gallops, no murmurs and no rubs GI: Palpation (GI): Soft to palpation Back/Spine/Pelvis: Other: unremarkable Skin: General skin exam: no rashes or lesions noted Neuro: General: Unable to assess gait Gait exam (Neuro): Unable to assess gait Extrem: General: Yes normal to inspection Psych: Appearance: grossly normal Objective Labs and Meds Result diagrams: 05/07/22 02:40 05/07/22 02:40 Lab results: Laboratory Results - last 24 hr 05/06/22 05/06/22 05/06/22 11:15 11:15 11:15 WBC 5.5 RBC 3.91 L Hgb 12.5 L Hct 34.4 L MCV 88.0 MCH 32.0 MCHC 36.3 H RDW 11.9 Plt Count 281 MPV 8.6 L Immature Gran % (Auto) 0.4 Neut % (Auto) 82.8 H Lymph % (Auto) 5.1 L [place] % (Auto) 11.7 H Eos % (Auto) 0.0 Baso % (Auto) 0.0 Lymph # (Auto) 0.3 L [place] # (Auto) 0.6 Eos # (Auto) 0.0 Baso # (Auto) 0.0 Abs Immat Gran (auto) 0.02 Absolute Neuts (auto) 4.5 Absolute Nucleated RBC 0.000 Nucleated RBC % (auto) 0.0 Sodium 127 L Potassium 5.1 Chloride 92 L Carbon Dioxide 28 Anion Gap 12 BUN 16 Creatinine 0.85 Estim Creat Clear Calc 0.0 Estimated GFR > 60 Random Glucose 146 H Calcium 9.2 Magnesium 1.9 Total Bilirubin 0.5 AST 27 ALT 21 Alkaline Phosphatase 119 H Troponin I High Sens < 3.5 Total Protein 7.3 Albumin 4.1 Urine Color Urine Appearance Urine pH Ur Specific [place] Urine Protein Urine Glucose (UA) Urine Ketones Urine Blood Urine Nitrite Ur Leukocyte Esterase Urine RBC Urine WBC Ur Squamous Epith Cells Urine Bacteria COVID-19 (THALIA) COVID-19 Clin Com Blood Type Antibody Screen 05/06/22 05/06/22 05/06/22 11:15 15:50 19:40 WBC RBC Hgb Hct MCV MCH MCHC RDW Plt Count MPV Immature Gran % (Auto) Neut % (Auto) Lymph % (Auto) [place] % (Auto) Eos % (Auto) Baso % (Auto) Lymph # (Auto) [place] # (Auto) Eos # (Auto) Baso # (Auto) Abs Immat Gran (auto) Absolute Neuts (auto) Absolute Nucleated RBC Nucleated RBC % (auto) Sodium Potassium Chloride Carbon Dioxide Anion Gap BUN Creatinine Estim Creat Clear Calc Estimated GFR Random Glucose Calcium Magnesium Total Bilirubin AST ALT Alkaline Phosphatase Troponin I High Sens Total Protein Albumin Urine Color YELLOW Urine Appearance CLEAR Urine pH 6.0 Ur Specific [place] 1.020 Urine Protein NEG Urine Glucose (UA) NEG Urine Ketones 5 Urine Blood 2+ H Urine Nitrite NEG Ur Leukocyte Esterase NEG Urine RBC 5-9 H Urine WBC 5-9 H Ur Squamous Epith Cells TRACE Urine Bacteria 3+ COVID-19 (THALIA) Negative COVID-19 Clin Com See Note Blood Type A Positive Antibody Screen NEGATIVE 05/07/22 05/07/22 02:40 02:40 WBC 4.2 L RBC 3.40 L Hgb 10.6 L Hct 30.3 L MCV 89.1 MCH 31.2 MCHC 35.0 RDW 11.9 Plt Count 210 D MPV 10.0 Immature Gran % (Auto) Neut % (Auto) Lymph % (Auto) [place] % (Auto) Eos % (Auto) Baso % (Auto) Lymph # (Auto) [place] # (Auto) Eos # (Auto) Baso # (Auto) Abs Immat Gran (auto) Absolute Neuts (auto) Absolute Nucleated RBC 0.000 Nucleated RBC % (auto) 0.0 Sodium 128 L Potassium 4.9 Chloride 99 Carbon Dioxide 23 Anion Gap 11 L BUN 18 H Creatinine 0.81 Estim Creat Clear Calc 0.0 Estimated GFR > 60 Random Glucose 130 H Calcium 8.3 L D Magnesium Total Bilirubin AST ALT Alkaline Phosphatase Troponin I High Sens Total Protein Albumin Urine Color Urine Appearance Urine pH Ur Specific [place] Urine Protein Urine Glucose (UA) Urine Ketones Urine Blood Urine Nitrite Ur Leukocyte Esterase Urine RBC Urine WBC Ur Squamous Epith Cells Urine Bacteria COVID-19 (THALIA) COVID-19 Clin Com Blood Type Antibody Screen ECG Interpretation: EKG shows sinus tachycardia at 01:32/Min; no significant ST-T changes and otherwise unremarkable. Normal ID/QTc Imaging Radiologist's impression: Impressions Cervical Spine CT 05/06/22 09:42 IMPRESSION: No acute intracranial process seen. Moderate cerebral are atrophy. Right temporal lobe atrophy likely secondary to old injury or insult. There is no acute fracture or dislocation cervical spine. Head CT 05/06/22 09:42 IMPRESSION: No acute intracranial process seen. Moderate cerebral are atrophy. Right temporal lobe atrophy likely secondary to old injury or insult. There is no acute fracture or dislocation cervical spine. Chest X-Ray 05/06/22 09:56 IMPRESSION: The left femoral neck fracture with medial angulation. No dislocation. No acute process seen in the chest. The left diaphragm is elevated Hip/Pelvis X-Ray 05/06/22 09:56 IMPRESSION: The left femoral neck fracture with medial angulation. No dislocation. No acute process seen in the chest. The left diaphragm is elevated Assessment and Plan (1) Preoperative cardiovascular examination: Status: Acute (2) Closed fracture of neck of left femur: Status: Acute (3) Sinus tachycardia: Status: Acute Plan EKG as well as telemetry was suggestive of sinus tachycardia. Echocardiogram shows hyperdynamic LV function but otherwise unremarkable. Labs with slight hyponatremia. Creatinine is 0.8. High sensitivity troponins within normal range. Etiology for the sinus tachycardia is not clear. Differential diagnosis incl udes infection, venous thromboembolic disease, pain, dehydration among others. Based on biomarkers, no evidence of ACS. Based on echocardiogram, no evidence of cardiomyopathy or pericardial effusion. At this time, recommend IV fluids, adequate pain management as well as infection screen. Consider workup for pulmonary embolism. From cardiac standpoint, known coronary status. If there is no clear etiology detected for the tachycardia, then can use empiric beta-blockers for rate control. From the risk standpoint, cardiac risk for the hip surgery would be intermediate to high due to persistent tachycardia as well as unknown coronary status. Messaged with recommendations. Procedures Date of Service Date of Service: 05/07/22
[2022-05-07] MEDS: ondansetron HCL 4 MG/2 ML VIAL IVPUSH (09:33)
[2022-05-07] MEDS: LORazepam 2 MG/ML VIAL 1 MG IVPUSH (09:43)
[2022-05-07] MEDS: 0.9 % Sodium Chloride 1,000 ML 500 ML IVCONT (09:46)
[2022-05-07] MEDS: Morphine Sulfate 4 MG/ML CARTRIDGE IVPUSH (09:56)
[2022-05-07] MEDS: levETIRAcetam in NaCl (iso-os) 1,500 MG/100 ML PIGGYBACK 400 MG IV (10:05)
--- NOTE | 2022-05-07 10:09 | PC.NURSE ---
Pt alert, reports pain to left hip but unable to give number on pain scale. Morphine PRN given. Tachy, NS 500ml bolus started. Pt also noted to have tonic clonic seizure x 30 seconds, with this RN at bedside. NRB placed. Ativan and zofran given as reflected in JAN. Seizure precautions instituted. Dr Zhang made aware. PO meds held, IV Keppra infusing at this time. Pt feels hot to touch, oral temp WNL, will check rectal. Surgery held today, plan for chest CT. Sinus tach remains on tele rate 120s. sat 97% on 2lpm via nc.
[2022-05-07] MEDS: Morphine Sulfate 4 MG/ML CARTRIDGE 3 MG IVPUSH ×3 (14:04→23:30)
--- NOTE | 2022-05-07 16:12 | P.PNIM_ITS ---
Subjective Subjective Date of Service: 05/07/22 Interval History: Remain tachycardic since admission. Witness seizure this a.m. lasting and responding to Ativan. No further seizure activities. Patient somnolent but arousable Review of Systems Unable to obtain Physical Exam Vital Signs: Vital Signs: Last Vital Signs Temp 100.0 F 05/07/22 13:52 Pulse 126 H 05/07/22 13:52 Resp 16 05/07/22 13:52 BP 152/80 H 05/07/22 13:52 Pulse Ox 92 05/07/22 13:52 O2 Del Method 05/07/22 13:52 BMI result Body Mass Index 0.0 Const: Other: Somnolent but arousable no acute distress Resp: Other: Clear to auscultation bilaterally no rales rhonchi or wheezes Cardio: Other: No S4; positive S1-S2; no S3 murmurs rubs or gallops. . . Tachycardia Extrem: Other: No edema bilaterally Objective Data Active Medications Acetaminophen (Acetaminophen 325 Mg Tablet) 650 mg PO Q6H PRN PRN Reason: Pain, Mild (Pain Scale 1-3) Sodium Chloride (Ns) 1,000 mls @ 75 mls/hr IVCONT .[id number] [facility] Last Admin: 05/06/22 18:05 Dose: 75 mls/hr Documented By: TIGRE Levetiracetam (Levetiracetam 500 Mg Tablet) 500 mg PO BID [facility] Last Admin: 05/07/22 09:44 Dose: Not Given Documented By: FRANSICO Non-Admin Reason: NPO Morphine Sulfate (Morphine Sulfate 4 Mg/Ml Cartridge) 3 mg IVPUSH Q3H PRN; Protocol PRN Reason: Pain, Severe (Pain Scale 7-10) Last Admin: 05/07/22 14:04 Dose: 3 mg Documented By: FRANSICO Multivitamins/Vitamin C (Multivitamin Tablet) 1 tab PO DAILY [facility] Last Admin: 05/07/22 09:44 Dose: Not Given Documented By: FRANSICO Non-Admin Reason: NPO Omeprazole (Omeprazole 40 Mg Capsule.) 40 mg PO DAILY@0630 [facility] Last Admin: 05/07/22 09:44 Dose: Not Given Documented By: FRANSICO Non-Admin Reason: NPO Ondansetron HCl (Ondansetron Hcl 4 Mg/2 Ml Vial) 4 mg IVPUSH Q8H PRN PRN Reason: Nausea and Vomiting Last Admin: 05/07/22 09:33 Dose: 4 mg Documented By: FRANSICO Ondansetron HCl (Ondansetron Hcl 4 Mg/2 Ml Vial) 4 mg IVPUSH Q4H PRN PRN Reason: Nausea and Vomiting Oxycodone HCl (Oxycodone Hcl Immed Release 5 Mg Tablet) 5 mg PO Q6H PRN PRN Reason: Pain, Moderate (Pain Scale 4-6 Pharmacy Consult (Consult Rx Perform Med Rec) 1 each MISCELLANE ONCE PRN PRN Reason: Consult order Sodium Chloride (0.9 % Sodium Chloride Flush 3 Ml Syringe) 3 ml IVFLUSH QSHIFT [facility] Last Admin: 05/07/22 16:10 Dose: Not Given Documented By: ARIS Non-Admin Reason: IV Running Trazodone HCl (Trazodone Hcl 100 Mg Tablet) 100 mg PO BEDTIME [facility] Labs CBC & Chem 7: 05/07/22 02:40 05/07/22 02:40 Labs: Laboratory Results - last 24 hr 05/06/22 05/06/22 05/07/22 15:50 19:40 02:40 MCV 89.1 MCH 31.2 MCHC 35.0 RDW 11.9 Plt Count 210 D MPV 10.0 Absolute Nucleated RBC 0.000 Nucleated RBC % (auto) 0.0 Anion Gap Estim Creat Clear Calc Estimated GFR Random Glucose Calcium Urine Color YELLOW Urine Appearance CLEAR Urine pH 6.0 Ur Specific [place] 1.020 Urine Protein NEG Urine Glucose (UA) NEG Urine Ketones 5 Urine Blood 2+ H Urine Nitrite NEG Ur Leukocyte Esterase NEG Urine RBC 5-9 H Urine WBC 5-9 H Ur Squamous Epith Cells TRACE Urine Bacteria 3+ Blood Type A Positive Antibody Screen NEGATIVE 05/07/22 02:40 MCV MCH MCHC RDW Plt Count MPV Absolute Nucleated RBC Nucleated RBC % (auto) Anion Gap 11 L Estim Creat Clear Calc 0.0 Estimated GFR > 60 Random Glucose 130 H Calcium 8.3 L D Urine Color Urine Appearance Urine pH Ur Specific [place] Urine Protein Urine Glucose (UA) Urine Ketones Urine Blood Urine Nitrite Ur Leukocyte Esterase Urine RBC Urine WBC Ur Squamous Epith Cells Urine Bacteria Blood Type Antibody Screen Microbiology Microbiology Results: Microbiology 05/06/22 Unknown Urine Culture - Preliminary Urine clean catch - Urine lopez top Culture too young to evaluate. Assessment and Plan (1) Closed fracture of neck of left femur: Status: Acute (2) Hyponatremia: Status: Acute (3) Epilepsy: Status: Acute Plan 66 yo M with a PMH of Epilepsy, henriquez's esophagus, legal blindness, intellectual disability who presents to the ED with left hip pain and fracture which began after what appears to be a mechanical fall. Patient will be admitted for further evaluation. 1. Left femoral neck fracture -surgery postpone secondary to seizure -resume when appropriate 2. Seizure disorder -noted nd seizure this a.m. responding to lorazepam -Keppra given IV. .. No further seizure disorder -seizure precautions 3. Tachycardia -continue IV fluids as ordered -check CTA to rule out PE -empiric ceftriaxone pending urine culture -above pathologies ruled out will beta-sana DNR DNI Pneumatics Will require ongoing hospitalization for treatment of tachycardia and surgical repair of left femoral neck Quality Stroke Does the patient have a stroke diagnosis?: No VTE Prior VTE?: No VTE Risk Level:: Medical - moderate - high VTE Device Contraindication: N/A - Device Ordered VTE Drug Contraindication: Treatment Not Indicated
[2022-05-07] MEDS: 0.9 % Sodium Chloride 1,000 ML 75 ML IVCONT (17:23)
[2022-05-07] MEDS: iohexoL 350 MG/ML 100 ML INFUS..BTL IV (18:20)
[2022-05-07] MEDS: traZODone HCL 100 MG TABLET PO (19:43)
[2022-05-07] MEDS: Acetaminophen 325 MG TABLET 650 MG PO (19:43)
[2022-05-07] MEDS: 0.9 % Sodium Chloride Flush 3 ML SYRINGE IVFLUSH (19:43)
[2022-05-07] MEDS: levETIRAcetam 500 MG TABLET PO (19:43)
[2022-05-07] MEDS: cefTRIAXone sodium 1 GM in 0.9 % Sodium Chloride 50 ML IV (21:00)
[2022-05-07 21:29] LABS: Lactic Acid 0.8 mmol/L (0.5-2.0)
[2022-05-08] VITALS (17 sets, daily range): BP systolic 95–132; BP diastolic 53–87; PULSE 103–148; RESP 14–20; TEMP 36.2–38.7; O2SAT 94–100; BMI 26.4
[2022-05-08] MEDS: Omeprazole 40 MG CAPSULE.DR PO (05:05)
[2022-05-08] MEDS: Morphine Sulfate 4 MG/ML CARTRIDGE 3 MG IVPUSH ×2 (05:05→22:32)
[2022-05-08] MEDS: 0.9 % Sodium Chloride 1,000 ML 75 ML IVCONT (05:06)
[2022-05-08] MEDS: Acetaminophen 325 MG TABLET 650 MG PO (06:11)
[2022-05-08 07:08] LABS: MANUAL DIFF FLAG NO
[2022-05-08 07:12] LABS: Basophils Percent Auto 0.3 % (0-2); Eosinophils Percent Auto 0.1 % (0-4); Hematocrit 27.7 % (42.0-52.0); Hemoglobin 9.4 g/dl (14.0-18.0); Imm Gran Abs Auto 0.03 X10*3/uL (0.00-0.03); Imm Gran Pct Auto 0.4 % (0.0-0.4); Lymphocytes Absolute Auto 0.3 X10*3/uL (1.2-4.9); Lymphocytes Percent Auto 4.7 % (20-40); Mean Corpuscular HGB Conc 33.9 g/dl (31.0-36.0); Mean Corpuscular Hemoglobin 30.8 pg (27.0-33.0); Mean Corpuscular Volume 90.8 fL (80.0-98.0); Mean Platelet Volume 8.8 fL (9.4-12.4); Monocytes Absolute Auto 0.8 X10*3/uL (0.1-1.2); Monocytes Percent Auto 11.7 % (2-11); Neutrophils Absolute Auto 5.8 x10*3/uL (2.0-8.3); Neutrophils Percent Auto 82.8 % (45-73); Platelet Count 235 X10*3/uL (160-400); Red Blood Count 3.05 X10*6/uL (4.60-5.80); Red Cell Distribution Width 12.1 % (11.0-16.0)
[2022-05-08] MEDS: levETIRAcetam 500 MG TABLET PO ×2 (07:32→20:19)
[2022-05-08] MEDS: oxyCODONE HCl Immed Release 5 MG TABLET PO ×2 (07:32→22:30)
[2022-05-08] MEDS: Multivitamin TABLET 1 TAB PO (07:32)
[2022-05-08 07:34] LABS: Alanine Aminotransferase 22 U/L (0-40); Alkaline Phosphatase 77 U/L (39-117); Anion Gap 15 (12-20); Aspartate Amino Transferase 44 U/L (5-37); Bilirubin Total 0.6 mg/dL (0.0-1.0); Blood Urea Nitrogen 14 mg/dL (9-16); Carbon Dioxide 23 mmol/L (22-29); Chloride 97 mmol/L (96-108); Estimated Glomerular Filt Rate > 60; Glucose Fasting 82 mg/dL (60-99); Potassium 4.7 mmol/L (3.3-5.1); Sodium 130 mmol/L (135-145)
[2022-05-08] MEDS: 0.9 % Sodium Chloride Flush 3 ML SYRINGE IVFLUSH ×3 (07:40→20:28)
[2022-05-08 07:44] LABS: Albumin Level 3.1 g/dL (3.5-5.0); Calcium 7.7 mg/dL (8.4-10.2); Total Protein 5.8 g/dL (6.5-8.0)
[2022-05-08 08:25] LABS: Lactic Acid 0.8 mmol/L (0.5-2.0)
[2022-05-08] MEDS: Metoprolol Tartrate 5 MG/5 ML VIAL IVPUSH (09:09)
--- NOTE | 2022-05-08 13:54 | HO.ANESPROP2 ---
HPI - Anesthesia Eval Consult details Narrative: 66 M for derik arthroplasty sinus tacycardia since admission , CTA possible small non occlusive PE vs artifacts , discussed with hospitalist and Surgeon . benefits outweighs risks , we will proceed . Also talked with HCP , and explained that patient is high risk . All in agreement . PMF Active Problems Active Problems: All Active Problems (Updated 05/07/22 @ 16:15 by Britton Zhang DO) Epilepsy (Acute) Hyponatremia (Acute) Sinus tachycardia (Acute) Preoperative cardiovascular examination (Acute) Closed fracture of neck of left femur (Acute) Displaced fracture of left femoral neck (Acute) Past Medical History Medical History Fountain esophagus Legally blind Family History Family history of problems with anesthesia: Unobtainable Surgical History Surgical History Hx of cholecystectomy History of Problems with Anesthesia: No Social History Social History Alcohol intake: never Patient Tobacco Use Status: Never used Tobacco Advance Directives Date on File: 05/07/22 service: No Current occupational status: disabled Meds Allergies Allergy/AdvReac Type Severity Reaction Status Date / Time No Known Allergies Allergy Verified 05/06/22 09:00 Active Medications: Current Medications Acetaminophen (Acetaminophen 325 Mg Tablet) 650 mg PO Q6H PRN PRN Reason: Pain, Mild (Pain Scale 1-3) Last Admin: 05/08/22 06:11 Dose: 650 mg Ceftriaxone Sodium 1 gm/ (Sodium Chloride) 50 mls @ 100 mls/hr IV Q24H [facility] Last Infusion: 05/07/22 21:32 Dose: Infused Levetiracetam (Levetiracetam 500 Mg Tablet) 500 mg PO BID [facility] Last Admin: 05/08/22 07:32 Dose: 500 mg Morphine Sulfate (Morphine Sulfate 4 Mg/Ml Cartridge) 3 mg IVPUSH Q3H PRN; Protocol PRN Reason: Pain, Severe (Pain Scale 7-10) Last Admin: 05/08/22 05:05 Dose: 3 mg Multivitamins/Vitamin C (Multivitamin Tablet) 1 tab PO DAILY [facility] Last Admin: 05/08/22 07:32 Dose: 1 tab Omeprazole (Omeprazole 40 Mg Capsule.Dr) 40 mg PO DAILY@0630 [facility] Last Admin: 05/08/22 05:05 Dose: 40 mg Ondansetron HCl (Ondansetron Hcl 4 Mg/2 Ml Vial) 4 mg IVPUSH Q8H PRN PRN Reason: Nausea and Vomiting Last Admin: 05/07/22 09:33 Dose: 4 mg Ondansetron HCl (Ondansetron Hcl 4 Mg/2 Ml Vial) 4 mg IVPUSH Q4H PRN PRN Reason: Nausea and Vomiting Oxycodone HCl (Oxycodone Hcl Immed Release 5 Mg Tablet) 5 mg PO Q6H PRN PRN Reason: Pain, Moderate (Pain Scale 4-6 Last Admin: 05/08/22 07:32 Dose: 5 mg Pharmacy Consult (Consult Rx Perform Med Rec) 1 each MISCELLANE ONCE PRN PRN Reason: Consult order Sodium Chloride (0.9 % Sodium Chloride Flush 3 Ml Syringe) 3 ml IVFLUSH QSHIFT [facility] Last Admin: 05/08/22 07:40 Dose: 3 ml Trazodone HCl (Trazodone Hcl 100 Mg Tablet) 100 mg PO BEDTIME [facility] Last Admin: 05/07/22 19:43 Dose: 100 mg Home Medications Medication Instructions Recorded Confirmed Last Taken Type lacosamide 200 mg tablet 1 tab PO BID 05/06/22 05/06/22 05/06/22 History levetiracetam 1,000 mg tablet 1 tab PO BID 05/06/22 05/06/22 05/06/22 History levetiracetam 750 mg tablet 1 tab PO BID 05/06/22 05/06/22 05/06/22 History multivitamin with folic acid 400 1 tab PO DAILY 05/06/22 05/06/22 05/06/22 History mcg tablet (Daily-[place] (with folic acid)) omeprazole 40 mg capsule,delayed 1 cap PO DAILY 05/06/22 05/06/22 05/06/22 History release trazodone 100 mg tablet 1 tab PO BEDTIME 05/06/22 05/06/22 05/05/22 History Exam Exam Date and Time: May 08, 2022 1354 Height,Weight and Vital Signs: Height 5 ft 2 in Weight 61.8 g Last Vital Signs Temp 99.1 F 05/08/22 12:56 Pulse 113 H 05/08/22 12:56 Resp 16 05/08/22 07:30 BP 106/56 L 05/08/22 12:56 Pulse Ox 94 05/08/22 12:56 O2 Del Method 05/08/22 12:56 O2 Flow Rate 2 05/08/22 12:56 Pertinent Lab Results Pertinent Lab Results: Laboratory Tests 05/06/22 05/06/22 05/06/22 11:15 11:15 11:15 WBC 5.5 RBC 3.91 L Hgb 12.5 L Hct 34.4 L MCV 88.0 MCH 32.0 MCHC 36.3 H RDW 11.9 Plt Count 281 MPV 8.6 L Immature Gran % (Auto) 0.4 Neut % (Auto) 82.8 H Lymph % (Auto) 5.1 L [place] % (Auto) 11.7 H Eos % (Auto) 0.0 Baso % (Auto) 0.0 Lymph # (Auto) 0.3 L [place] # (Auto) 0.6 Eos # (Auto) 0.0 Baso # (Auto) 0.0 Abs Immat Gran (auto) 0.02 Absolute Neuts (auto) 4.5 Absolute Nucleated RBC 0.000 Nucleated RBC % (auto) 0.0 Sodium 127 L Potassium 5.1 Chloride 92 L Carbon Dioxide 28 Anion Gap 12 BUN 16 Creatinine 0.85 Estim Creat Clear Calc 0.0 Estimated GFR > 60 Random Glucose 146 H Fasting Glucose Lactic Acid Calcium 9.2 Magnesium 1.9 Total Bilirubin 0.5 AST 27 ALT 21 Alkaline Phosphatase 119 H Troponin I High Sens < 3.5 Total Protein 7.3 Albumin 4.1 Urine Color Urine Appearance Urine pH Ur Specific [place] Urine Protein Urine Glucose (UA) Urine Ketones Urine Blood Urine Nitrite Ur Leukocyte Esterase Urine RBC Urine WBC Ur Squamous Epith Cells Urine Bacteria COVID-19 (THALIA) COVID-19 Clin Com Blood Type Antibody Screen 05/06/22 05/06/22 05/06/22 11:15 15:50 19:40 WBC RBC Hgb Hct MCV MCH MCHC RDW Plt Count MPV Immature Gran % (Auto) Neut % (Auto) Lymph % (Auto) [place] % (Auto) Eos % (Auto) Baso % (Auto) Lymph # (Auto) [place] # (Auto) Eos # (Auto) Baso # (Auto) Abs Immat Gran (auto) Absolute Neuts (auto) Absolute Nucleated RBC Nucleated RBC % (auto) Sodium Potassium Chloride Carbon Dioxide Anion Gap BUN Creatinine Estim Creat Clear Calc Estimated GFR Random Glucose Fasting Glucose Lactic Acid Calcium Magnesium Total Bilirubin AST ALT Alkaline Phosphatase Troponin I High Sens Total Protein Albumin Urine Color YELLOW Urine Appearance CLEAR Urine pH 6.0 Ur Specific [place] 1.020 Urine Protein NEG Urine Glucose (UA) NEG Urine Ketones 5 Urine Blood 2+ H Urine Nitrite NEG Ur Leukocyte Esterase NEG Urine RBC 5-9 H Urine WBC 5-9 H Ur Squamous Epith Cells TRACE Urine Bacteria 3+ COVID-19 (THALIA) Negative COVID-19 Clin Com See Note Blood Type A Positive Antibody Screen NEGATIVE 05/07/22 05/07/22 05/07/22 02:40 02:40 20:53 WBC 4.2 L RBC 3.40 L Hgb 10.6 L Hct 30.3 L MCV 89.1 MCH 31.2 MCHC 35.0 RDW 11.9 Plt Count 210 D MPV 10.0 Immature Gran % (Auto) Neut % (Auto) Lymph % (Auto) [place] % (Auto) Eos % (Auto) Baso % (Auto) Lymph # (Auto) [place] # (Auto) Eos # (Auto) Baso # (Auto) Abs Immat Gran (auto) Absolute Neuts (auto) Absolute Nucleated RBC 0.000 Nucleated RBC % (auto) 0.0 Sodium 128 L Potassium 4.9 Chloride 99 Carbon Dioxide 23 Anion Gap 11 L BUN 18 H Creatinine 0.81 Estim Creat Clear Calc 0.0 Estimated GFR > 60 Random Glucose 130 H Fasting Glucose Lactic Acid 0.8 Calcium 8.3 L D Magnesium Total Bilirubin AST ALT Alkaline Phosphatase Troponin I High Sens Total Protein Albumin Urine Color Urine Appearance Urine pH Ur Specific [place] Urine Protein Urine Glucose (UA) Urine Ketones Urine Blood Urine Nitrite Ur Leukocyte Esterase Urine RBC Urine WBC Ur Squamous Epith Cells Urine Bacteria COVID-19 (THALIA) COVID-19 Clin Com Blood Type Antibody Screen 05/08/22 05/08/22 05/08/22 06:42 06:42 08:10 WBC 7.0 RBC 3.05 L Hgb 9.4 L Hct 27.7 L MCV 90.8 MCH 30.8 MCHC 33.9 RDW 12.1 Plt Count 235 MPV 8.8 L Immature Gran % (Auto) 0.4 Neut % (Auto) 82.8 H Lymph % (Auto) 4.7 L [place] % (Auto) 11.7 H Eos % (Auto) 0.1 Baso % (Auto) 0.3 Lymph # (Auto) 0.3 L [place] # (Auto) 0.8 Eos # (Auto) 0.0 Baso # (Auto) 0.0 Abs Immat Gran (auto) 0.03 Absolute Neuts (auto) 5.8 Absolute Nucleated RBC 0.000 Nucleated RBC % (auto) 0.0 Sodium 130 L Potassium 4.7 Chloride 97 Carbon Dioxide 23 Anion Gap 15 BUN 14 Creatinine 0.71 Estim Creat Clear Calc 0.0 Estimated GFR > 60 Random Glucose Fasting Glucose 82 Lactic Acid 0.8 Calcium 7.7 L D Magnesium Total Bilirubin 0.6 AST 44 H D ALT 22 Alkaline Phosphatase 77 D Troponin I High Sens Total Protein 5.8 L D Albumin 3.1 L D Urine Color Urine Appearance Urine pH Ur Specific [place] Urine Protein Urine Glucose (UA) Urine Ketones Urine Blood Urine Nitrite Ur Leukocyte Esterase Urine RBC Urine WBC Ur Squamous Epith Cells Urine Bacteria COVID-19 (THALIA) COVID-19 Clin Com Blood Type Antibody Screen Airway Mallampati Class: IV Neck ROM: Limited Loose/Missing/Broken Teeth: Yes (Extremely poor dentiton ) Heart: S1,S2 Lungs: b/l breath sounds Assessment and Plan Assessment Anesthesia Assessment: Anesthesia Plan Discussed and Chart Reviewed Final Anesthetic Review Family History of Problems with Anesthesia: Unobtainable History of Problems with Anesthesia: No NPO: Yes ASA Class: III and Emergency Final Preanesthetic Review: Meds/Allgs Chart Reviewed, Consent Obtained/Reviewed, Anes Risks/Benef Reviewed and DNR Form (If Appl.) Patient Risk: High Procedure Risk: Intermediate Anesthetic Plan Anesthetic Plan: GA Disposition: Inp. Admit - Standard Bed
--- NOTE | 2022-05-08 15:30 | MHC.CM.PN ---
Male 66 DX HIP FX Patient will require STR. No DC today. Patient is tachycardic. No dc today. IV fluids started as well as a Betablocker. A referral has been sent to [facility].
--- NOTE | 2022-05-08 15:35 | P.BOP_ITS ---
Brief Operative Note Date of Service: 05/08/22 Pre-op diagnosis: Left femoral neck fracture Post-op diagnosis: same Procedure: Left hip hemiarthroplasty Implants: Aguilar Accoalde2#4 127 deg with +0/47 bipolar Surgeon: Joaquín Chavira MD Anesthesia: GETA, GLMA and local Was an Radar Systems Engineer used for this Procedure?: No Estimated blood loss (mL): 200 IV fluids (mL): 600 Pathology: other Condition: stable Disposition: PACU
--- NOTE | 2022-05-08 17:45 | HO.PM.IMPN ---
Subjective Subjective Date of Service: 05/08/22 Interval History: Seen postoperatively today. No acute issues. Remains mildly tachycardic satting well on room air Review of Systems Unable to obtain Physical Exam Vital Signs: Vital Signs: Last Vital Signs Temp 98.1 F 05/08/22 17:15 Pulse 118 H 05/08/22 17:15 Resp 14 05/08/22 17:15 BP 112/54 L 05/08/22 17:15 Pulse Ox 97 05/08/22 17:15 O2 Del Method 05/08/22 17:15 O2 Flow Rate 3 05/08/22 16:33 BMI result Body Mass Index 26.4 Const: Other: Somnolent but arousable no acute distress Resp: Other: Clear to auscultation bilaterally no rales rhonchi or wheezes Cardio: Other: No S4; positive S1-S2; no S3 murmurs rubs or gallops. . . Tachycardia Extrem: Other: No edema bilaterally Objective Data Active Medications Acetaminophen (Acetaminophen 325 Mg Tablet) 650 mg PO Q6H PRN PRN Reason: Pain, Mild (Pain Scale 1-3) Last Admin: 05/08/22 06:11 Dose: 650 mg Documented By: VERONICA Enoxaparin Sodium (Enoxaparin Sodium 40 Mg/0.4 Ml Syringe) 40 mg SUBCUT Q24H [facility] Ceftriaxone Sodium 1 gm/ (Sodium Chloride) 50 mls @ 100 mls/hr IV Q24H [facility] Last Infusion: 05/07/22 21:32 Dose: 0 mls/hr Documented By: VERONICA Levetiracetam (Levetiracetam 500 Mg Tablet) 500 mg PO BID [facility] Last Admin: 05/08/22 07:32 Dose: 500 mg Documented By: LYLE Morphine Sulfate (Morphine Sulfate 4 Mg/Ml Cartridge) 3 mg IVPUSH Q3H PRN; Protocol PRN Reason: Pain, Severe (Pain Scale 7-10) Last Admin: 05/08/22 05:05 Dose: 3 mg Documented By: VERONICA Multivitamins/Vitamin C (Multivitamin Tablet) 1 tab PO DAILY [facility] Last Admin: 05/08/22 07:32 Dose: 1 tab Documented By: LYLE Omeprazole (Omeprazole 40 Mg Capsule.) 40 mg PO DAILY@0630 [facility] Last Admin: 05/08/22 05:05 Dose: 40 mg Documented By: VERONICA Ondansetron HCl (Ondansetron Hcl 4 Mg/2 Ml Vial) 4 mg IVPUSH Q8H PRN PRN Reason: Nausea and Vomiting Last Admin: 05/07/22 09:33 Dose: 4 mg Documented By: FRANSICO Ondansetron HCl (Ondansetron Hcl 4 Mg/2 Ml Vial) 4 mg IVPUSH Q4H PRN PRN Reason: Nausea and Vomiting Oxycodone HCl (Oxycodone Hcl Immed Release 5 Mg Tablet) 5 mg PO Q6H PRN PRN Reason: Pain, Moderate (Pain Scale 4-6 Last Admin: 05/08/22 07:32 Dose: 5 mg Documented By: LYLE Pharmacy Consult (Consult Rx Perform Med Rec) 1 each MISCELLANE ONCE PRN PRN Reason: Consult order Sodium Chloride (0.9 % Sodium Chloride Flush 3 Ml Syringe) 3 ml IVFLUSH QSHIFT [facility] Last Admin: 05/08/22 17:00 Dose: 3 ml Documented By: JAMES Trazodone HCl (Trazodone Hcl 100 Mg Tablet) 100 mg PO BEDTIME [facility] Last Admin: 05/07/22 19:43 Dose: 100 mg Documented By: VERONICA Labs CBC & Chem 7: 05/08/22 06:42 05/08/22 06:42 Labs: Laboratory Results - last 24 hr 05/07/22 05/08/22 05/08/22 20:53 06:42 06:42 MCV 90.8 MCH 30.8 MCHC 33.9 RDW 12.1 Plt Count 235 MPV 8.8 L Immature Gran % (Auto) 0.4 Neut % (Auto) 82.8 H Lymph % (Auto) 4.7 L [place] % (Auto) 11.7 H Eos % (Auto) 0.1 Baso % (Auto) 0.3 Lymph # (Auto) 0.3 L [place] # (Auto) 0.8 Eos # (Auto) 0.0 Baso # (Auto) 0.0 Abs Immat Gran (auto) 0.03 Absolute Neuts (auto) 5.8 Absolute Nucleated RBC 0.000 Nucleated RBC % (auto) 0.0 Anion Gap 15 Estim Creat Clear Calc 0.0 Estimated GFR > 60 Fasting Glucose 82 Lactic Acid 0.8 Calcium 7.7 L D Total Bilirubin 0.6 AST 44 H D ALT 22 Alkaline Phosphatase 77 D Total Protein 5.8 L D Albumin 3.1 L D 05/08/22 08:10 MCV MCH MCHC RDW Plt Count MPV Immature Gran % (Auto) Neut % (Auto) Lymph % (Auto) [place] % (Auto) Eos % (Auto) Baso % (Auto) Lymph # (Auto) [place] # (Auto) Eos # (Auto) Baso # (Auto) Abs Immat Gran (auto) Absolute Neuts (auto) Absolute Nucleated RBC Nucleated RBC % (auto) Anion Gap Estim Creat Clear Calc Estimated GFR Fasting Glucose Lactic Acid 0.8 Calcium Total Bilirubin AST ALT Alkaline Phosphatase Total Protein Albumin Microbiology Microbiology Results: Microbiology 05/06/22 Unknown Urine Culture - Final Urine clean catch - Urine lopez top Strep agalactiae (Grp B) Assessment and Plan (1) Closed fracture of neck of left femur: Status: Acute (2) Sinus tachycardia: Status: Acute (3) Epilepsy: Status: Acute Plan 66 yo M with a PMH of Epilepsy, henriquez's esophagus, legal blindness, intellectual disability who presents to the ED with left hip pain and fracture which began after what appears to be a mechanical fall. Patient will be admitted for further evaluation. 1. Left femoral neck fracture -postop course as poor Orthopedics 2. Seizure disorder -no further seizures since admission -continue oral Keppra 3. Tachycardia -improved slightly with volume and beta-blockade -CTA equivocal.. Discuss with Radiology -monitor on telemetry DNR DNI Pneumatics Will require ongoing hospitalization for treatment of tachycardia and surgical repair of left femoral neck Quality Stroke Does the patient have a stroke diagnosis?: No VTE Prior VTE?: No VTE Risk Level:: Medical - moderate - high VTE Device Contraindication: N/A - Device Ordered VTE Drug Contraindication: Treatment Not Indicated
[2022-05-08] MEDS: traZODone HCL 100 MG TABLET PO (20:20)
[2022-05-08] MEDS: cefTRIAXone sodium 1 GM in 0.9 % Sodium Chloride 50 ML IV (20:29)
[2022-05-09 03:54] VITALS: BP 121/57; PULSE 120; RESP 19; TEMP 36.9; O2SAT 96
[2022-05-09] MEDS: Morphine Sulfate 4 MG/ML CARTRIDGE 3 MG IVPUSH ×3 (05:25→22:41)
[2022-05-09] MEDS: oxyCODONE HCl Immed Release 5 MG TABLET PO ×2 (05:28→15:19)
[2022-05-09] MEDS: Omeprazole 40 MG CAPSULE.DR PO (05:30)
[2022-05-09 07:02] LABS: MANUAL DIFF FLAG NO
[2022-05-09 07:07] LABS: Basophils Percent Auto 0.2 % (0-2); Hematocrit 26.7 % (42.0-52.0); Hemoglobin 9.1 g/dl (14.0-18.0); Imm Gran Abs Auto 0.02 X10*3/uL (0.00-0.03); Imm Gran Pct Auto 0.3 % (0.0-0.4); Lymphocytes Absolute Auto 0.3 X10*3/uL (1.2-4.9); Lymphocytes Percent Auto 4.1 % (20-40); Mean Corpuscular HGB Conc 34.1 g/dl (31.0-36.0); Mean Corpuscular Hemoglobin 31.3 pg (27.0-33.0); Mean Corpuscular Volume 91.8 fL (80.0-98.0); Mean Platelet Volume 9.1 fL (9.4-12.4); Monocytes Absolute Auto 0.6 X10*3/uL (0.1-1.2); Neutrophils Absolute Auto 5.7 x10*3/uL (2.0-8.3); Neutrophils Percent Auto 86.4 % (45-73); Platelet Count 230 X10*3/uL (160-400); Red Blood Count 2.91 X10*6/uL (4.60-5.80); Red Cell Distribution Width 12.1 % (11.0-16.0); White Blood Count 6.6 X10*3/uL (4.8-10.8)
[2022-05-09 07:35] LABS: Alanine Aminotransferase 23 U/L (0-40); Albumin Level 3.1 g/dL (3.5-5.0); Alkaline Phosphatase 68 U/L (39-117); Anion Gap 14 (12-20); Aspartate Amino Transferase 41 U/L (5-37); Bilirubin Total 0.5 mg/dL (0.0-1.0); Blood Urea Nitrogen 16 mg/dL (9-16); Calcium 7.9 mg/dL (8.4-10.2); Carbon Dioxide 25 mmol/L (22-29); Chloride 95 mmol/L (96-108); Creatinine Clr Calc Pharmacy 84.2; Estimated Glomerular Filt Rate > 60; Glucose Fasting 130 mg/dL (60-99); Potassium 4.9 mmol/L (3.3-5.1); Sodium 129 mmol/L (135-145); Total Protein 5.7 g/dL (6.5-8.0)
[2022-05-09 08:00] VITALS: BP 137/59; PULSE 115; RESP 16; TEMP 36.9; O2SAT 97
--- NOTE | 2022-05-09 08:41 | P.PNOP_ITS ---
Subjective Subjective Date of Service: 05/09/22 Interval history: POD1 status post left hip hemiarthroplasty. Patient is resting in bed comfortably. No overnight events. Pain is well managed. Patient is sleeping in bed. Allowed to sleep. Physical Exam Vital Signs: Vital Signs: Last Vital Signs Temp 98.4 F 05/09/22 03:54 Pulse 120 H 05/09/22 03:54 Resp 19 05/09/22 03:54 BP 121/57 L 05/09/22 03:54 Pulse Ox 96 05/09/22 03:54 O2 Del Method 05/09/22 03:54 O2 Flow Rate 3 05/09/22 03:54 BMI result Body Mass Index 26.4 Const: General: cooperative, healthy appearing and no acute distress Resp: Effort & Inspection: normal respiratory effort and able to speak in complete sentences Cardio: Rate: regular rate Peripheral pulses: Peripheral pulses 2+ thro ughout GI: Palpation (GI): Soft to palpation Skin: Lesions: no lesions Rashes: no rashes Extrem: Other: Left hip dressings are clean dry and intact. Procedures Date of Service Date of Service: 05/09/22 Progress Note: A&P Assessment and plan (1) Closed fracture of neck of left femur: Status: Acute Plan Continue pain mgmnt Begin Lovenox for dvt ppx begin PT for left hip hemiarthroplasty - WBAT Dispo planning-Pending PT eval, pain mgmnt, able to DC to rehab once medically cleared. Time Spent With Patient Time: Total time spent is greater than 50% in coordination of care (as documented) at patient's floor/unit and/or counseling patient: Quality Stroke Does the patient have a stroke diagnosis?: No VTE Prior VTE?: No VTE Risk Level:: Medical - moderate - high VTE Device Contraindication: N/A - Device Ordered VTE Drug Contraindication: Treatment Not Indicated
[2022-05-09] MEDS: Multivitamin TABLET 1 TAB PO (09:14)
[2022-05-09] MEDS: Metoprolol Tartrate 25 MG TABLET PO ×2 (09:14→20:06)
[2022-05-09] MEDS: levETIRAcetam 500 MG TABLET PO ×2 (09:14→20:06)
[2022-05-09] MEDS: 0.9 % Sodium Chloride Flush 3 ML SYRINGE IVFLUSH ×2 (09:14→15:26)
[2022-05-09] MEDS: 0.9 % Sodium Chloride 1,000 ML 125 ML IVCONT ×2 (09:15→15:27)
[2022-05-09] MEDS: Acetaminophen 325 MG TABLET 650 MG PO ×2 (09:26→15:18)
[2022-05-09 09:30] VITALS: BP 137/59; PULSE 115; O2SAT 97
--- NOTE | 2022-05-09 11:06 | HO.POSTANES ---
Post Anesthesia Evaluation Post Anesthesia Evaluation Vital Signs: Vital Signs Temp Pulse Resp BP Pulse Ox O2 Del Method O2 Flow Rate 05/09/22 09:30 115 H 137/59 L 97 05/09/22 08:00 98.5 F 115 H 16 137/59 L 97 Nasal Cannula 3 05/09/22 03:54 98.4 F 120 H 19 121/57 L 96 Nasal Cannula 3 05/08/22 23:38 97.6 F 120 H 16 101/53 L 98 Nasal Cannula Anesthesia: General Endotracheal-GETA Mental Status: Awake Pain Control: Satisfactory Nausea/Vomiting: None Hydration: Adequate Anesthesia-Related Issues: No Anes. Related Issues
--- NOTE | 2022-05-09 14:40 | P.PNIM_ITS ---
Subjective Subjective Date of Service: 05/09/22 Interval History: Doing well postop day 1. Pain control adequate. No respiratory distress on room air Review of Systems Denies chest pain Denies shortness of breath Denies nausea vomiting diarrhea Denies fever chills Physical Exam Vital Signs: Vital Signs: Last Vital Signs Temp 98.5 F 05/09/22 08:00 Pulse 115 H 05/09/22 09:30 Resp 16 05/09/22 08:00 BP 137/59 L 05/09/22 09:30 Pulse Ox 97 05/09/22 09:30 O2 Del Method 05/09/22 08:00 O2 Flow Rate 3 05/09/22 08:00 BMI result Body Mass Index 26.4 Const: Other: Somnolent but arousable no acute distress Resp: Other: Clear to auscultation bilaterally no rales rhonchi or wheezes Cardio: Other: No S4; positive S1-S2; no S3 murmurs rubs or gallops. . . Tachycardia Extrem: Other: No edema bilaterally Objective Data Active Medications Acetaminophen (Acetaminophen 325 Mg Tablet) 650 mg PO Q6H PRN PRN Reason: Pain, Mild (Pain Scale 1-3) Last Admin: 05/09/22 09:26 Dose: 650 mg Documented By: JAMES Enoxaparin Sodium (Enoxaparin Sodium 40 Mg/0.4 Ml Syringe) 40 mg SUBCUT Q24H [facility] Ceftriaxone Sodium 1 gm/ (Sodium Chloride) 50 mls @ 100 mls/hr IV Q24H [facility] Last Infusion: 05/08/22 21:52 Dose: 0 mls/hr Documented By: DENILSON Sodium Chloride (Ns) 1,000 mls @ 125 mls/hr IVCONT .Q8H [facility] Last Admin: 05/09/22 09:15 Dose: 125 mls/hr Documented By: JAMES Levetiracetam (Levetiracetam 500 Mg Tablet) 500 mg PO BID [facility] Last Admin: 05/09/22 09:14 Dose: 500 mg Documented By: JAMES Metoprolol Tartrate (Metoprolol Tartrate 25 Mg Tablet) 25 mg PO BID [facility]; Protocol Last Admin: 05/09/22 09:14 Dose: 25 mg Documented By: JAMES Morphine Sulfate (Morphine Sulfate 4 Mg/Ml Cartridge) 3 mg IVPUSH Q3H PRN; Protocol PRN Reason: Pain, Severe (Pain Scale 7-10) Last Admin: 05/09/22 09:27 Dose: 3 mg Documented By: JAMES Multivitamins/Vitamin C (Multivitamin Tablet) 1 tab PO DAILY [facility] Last Admin: 05/09/22 09:14 Dose: 1 tab Documented By: JAMES Omeprazole (Omeprazole 40 Mg Capsule.Dr) 40 mg PO DAILY@629 [facility] Last Admin: 05/09/22 05:30 Dose: 40 mg Documented By: DENILSON Ondansetron HCl (Ondansetron Hcl 4 Mg/2 Ml Vial) 4 mg IVPUSH Q8H PRN PRN Reason: Nausea and Vomiting Last Admin: 05/07/22 09:33 Dose: 4 mg Documented By: FRANSICO Ondansetron HCl (Ondansetron Hcl 4 Mg/2 Ml Vial) 4 mg IVPUSH Q4H PRN PRN Reason: Nausea and Vomiting Oxycodone HCl (Oxycodone Hcl Immed Release 5 Mg Tablet) 5 mg PO Q6H PRN PRN Reason: Pain, Moderate (Pain Scale 4-6 Last Admin: 05/09/22 05:28 Dose: 5 mg Documented By: DENILSON Pharmacy Consult (Consult Rx Perform Med Rec) 1 each MISCELLANE ONCE PRN PRN Reason: Consult order Sodium Chloride (0.9 % Sodium Chloride Flush 3 Ml Syringe) 3 ml IVFLUSH QSHIFT [facility] Last Admin: 05/09/22 09:14 Dose: 3 ml Documented By: JAMES Trazodone HCl (Trazodone Hcl 100 Mg Tablet) 100 mg PO BEDTIME [facility] Last Admin: 05/08/22 20:20 Dose: 100 mg Documented By: DENILSON Labs CBC & Chem 7: 05/09/22 06:10 05/09/22 06:10 Labs: Laboratory Results - last 24 hr 05/09/22 05/09/22 06:10 06:10 MCV 91.8 MCH 31.3 MCHC 34.1 RDW 12.1 Plt Count 230 MPV 9.1 L Immature Gran % (Auto) 0.3 Neut % (Auto) 86.4 H Lymph % (Auto) 4.1 L [place] % (Auto) 9.0 Eos % (Auto) 0.0 Baso % (Auto) 0.2 Lymph # (Auto) 0.3 L [place] # (Auto) 0.6 Eos # (Auto) 0.0 Baso # (Auto) 0.0 Abs Immat Gran (auto) 0.02 Absolute Neuts (auto) 5.7 Absolute Nucleated RBC 0.000 Nucleated RBC % (auto) 0.0 Anion Gap 14 Estim Creat Clear Calc 84.2 Estimated GFR > 60 Fasting Glucose 130 H D Calcium 7.9 L Total Bilirubin 0.5 AST 41 H ALT 23 Alkaline Phosphatase 68 Total Protein 5.7 L Albumin 3.1 L Microbiology Microbiology Results: Microbiology 05/08/22 08:10 Blood Culture - Preliminary Blood - Venous No growth after 24 hours. 05/08/22 08:10 Blood Culture - Preliminary Blood - Venous No growth after 24 hours. 05/07/22 20:53 Blood Culture - Preliminary Blood - Venous No growth after 24 hours. 05/07/22 20:53 Blood Culture - Preliminary Blood - Venous No growth after 24 hours. 05/06/22 Unknown Urine Culture - Final Urine clean catch - Urine lopez top Strep agalactiae (Grp B) Assessment and Plan (1) Closed fracture of neck of left femur: Status: Acute (2) Epilepsy: Status: Acute (3) Sinus tachycardia: Status: Acute Plan 66 yo M with a PMH of Epilepsy, henriquez's esophagus, legal blindness, intellec tual disability who presents to the ED with left hip pain and fracture which began after what appears to be a mechanical fall. Patient will be admitted for further evaluation. 1. Left femoral neck fracture -postop course as poor Orthopedics 2. Seizure disorder -no further seizures since admission -continue oral Keppra 3. Tachycardia -improved slightly with beta-blockade -perfusion imaging negative for DVT -adjust therapies as clinically indicated - DNR DNI Pneumatics Will require ongoing hospitalization for treatment of tachycardia and surgical repair of left femoral neck Quality Stroke Does the patient have a stroke diagnosis?: No VTE Prior VTE?: No VTE Risk Level:: Medical - moderate - high VTE Device Contraindication: N/A - Device Ordered VTE Drug Contraindication: Treatment Not Indicated
[2022-05-09] MEDS: Enoxaparin Sodium 40 MG/0.4 ML SYRINGE SUBCUT (15:19)
[2022-05-09 16:00] VITALS: BP 101/62; PULSE 112; RESP 16; TEMP 37.1; O2SAT 93
--- NOTE | 2022-05-09 18:30 | PC.NURSE ---
Pt alert and oriented x3 but with some expressive difficulty. 1034am, pt had a small seizure while this Rn was at the bedside. it lasted about 1 minute, Leatha Russell notified. Pt has also been consistently tachycardic in the 110s -120s. aware and will adjust meds tomorrow. Espinoza catheter D/C'd at 1030, Pt is yet to void. Bladder scanned at 1630 for 157. also notigied via [facility]. NaCl running at 75cc/hr
[2022-05-09 20:00] VITALS: BP 101/57; PULSE 120; RESP 16; TEMP 37.3; O2SAT 94
[2022-05-09] MEDS: traZODone HCL 100 MG TABLET PO (20:06)
[2022-05-09] MEDS: cefTRIAXone sodium 1 GM in 0.9 % Sodium Chloride 50 ML IV (20:06)
[2022-05-09 22:41] VITALS: RESP 18
[2022-05-10] VITALS: BP 91/49; PULSE 106; RESP 18; TEMP 37; O2SAT 91
[2022-05-10] MEDS: 0.9 % Sodium Chloride 1,000 ML 125 ML IVCONT ×2 (02:36→17:01)
[2022-05-10 03:27] VITALS: BP 139/71; PULSE 119; RESP 18; TEMP 37; O2SAT 93
[2022-05-10] MEDS: Omeprazole 40 MG CAPSULE.DR PO (05:51)
[2022-05-10 06:18] LABS: MANUAL DIFF FLAG NO
[2022-05-10 06:22] LABS: Basophils Percent Auto 0.2 % (0-2); Eosinophils Absolute Auto 0.1 X10*3/uL (0.0-0.4); Eosinophils Percent Auto 1.9 % (0-4); Hematocrit 22.3 % (42.0-52.0); Hemoglobin 7.4 g/dl (14.0-18.0); Imm Gran Abs Auto 0.03 X10*3/uL (0.00-0.03); Imm Gran Pct Auto 0.6 % (0.0-0.4); Lymphocytes Absolute Auto 0.5 X10*3/uL (1.2-4.9); Lymphocytes Percent Auto 9.7 % (20-40); Mean Corpuscular HGB Conc 33.2 g/dl (31.0-36.0); Mean Corpuscular Hemoglobin 30.2 pg (27.0-33.0); Mean Platelet Volume 8.7 fL (9.4-12.4); Monocytes Absolute Auto 0.6 X10*3/uL (0.1-1.2); Monocytes Percent Auto 11.4 % (2-11); Neutrophils Percent Auto 76.2 % (45-73); Platelet Count 270 X10*3/uL (160-400); Red Blood Count 2.45 X10*6/uL (4.60-5.80); Red Cell Distribution Width 11.9 % (11.0-16.0); White Blood Count 5.3 X10*3/uL (4.8-10.8)
[2022-05-10 07:17] LABS: Alanine Aminotransferase 24 U/L (0-40); Albumin Level 2.7 g/dL (3.5-5.0); Alkaline Phosphatase 55 U/L (39-117); Anion Gap 10 (12-20); Aspartate Amino Transferase 57 U/L (5-37); Bilirubin Total 0.5 mg/dL (0.0-1.0); Blood Urea Nitrogen 20 mg/dL (9-16); Calcium 7.3 mg/dL (8.4-10.2); Carbon Dioxide 28 mmol/L (22-29); Chloride 100 mmol/L (96-108); Creatinine Clr Calc Pharmacy 85.5; Estimated Glomerular Filt Rate > 60; Glucose Fasting 114 mg/dL (60-99); Potassium 4.1 mmol/L (3.3-5.1); Sodium 134 mmol/L (135-145); Total Protein 5.1 g/dL (6.5-8.0)
--- NOTE | 2022-05-10 07:46 | P.PNOP_ITS ---
Subjective Subjective Date of Service: 05/10/22 Interval history: POD2 status post left hip hemiarthroplasty. Patient is resting in bed comfortably. No overnight events. Pain is well managed. Patient is sleeping in bed. Allowed to sleep. Physical Exam Vital Signs: Vital Signs: Last Vital Signs Temp 98.6 F 05/10/22 03:27 Pulse 119 H 05/10/22 03:27 Resp 18 05/10/22 03:27 BP 139/71 05/10/22 03:27 Pulse Ox 93 05/10/22 03:27 O2 Del Method 05/10/22 03:27 O2 Flow Rate 3 05/09/22 20:00 BMI result Body Mass Index 26.4 Const: General: cooperative, healthy appearing and no acute distress Resp: Effort & Inspection: normal respiratory effort and able to speak in complete sentences Cardio: Rate: regular rate Peripheral pulses: Peripheral pulses 2+ thro ughout GI: Palpation (GI): Soft to palpation Skin: Lesions: no lesions Rashes: no rashes Extrem: Other: Left hip dressings are clean dry and intact. Procedures Date of Service Date of Service: 05/10/22 Progress Note: A&P Assessment and plan (1) Closed fracture of neck of left femur: Status: Acute Plan Continue pain mgmnt Continue Lovenox for dvt ppx Continue PT for left hip hemiarthroplasty - WBAT Dispo planning-PT, pain mgmnt, able to DC to rehab once medically cleared. Time Spent With Patient Time: Total time spent is greater than 50% in coordination of care (as documented) at patient's floor/unit and/or counseling patient: Quality Stroke Does the patient have a stroke diagnosis?: No VTE Prior VTE?: No VTE Risk Level:: Medical - moderate - high VTE Device Contraindication: N/A - Device Ordered VTE Drug Contraindication: Treatment Not Indicated
[2022-05-10 08:00] VITALS: BP 127/65; PULSE 122; RESP 20; TEMP 37.3; O2SAT 96
[2022-05-10 08:57] VITALS: BP 127/65; PULSE 122; O2SAT 96
[2022-05-10] MEDS: levETIRAcetam 500 MG TABLET PO (10:08)
[2022-05-10] MEDS: Metoprolol Tartrate 25 MG TABLET PO (10:09)
[2022-05-10] MEDS: Multivitamin TABLET 1 TAB PO (10:09)
[2022-05-10] MEDS: Acetaminophen 325 MG TABLET 650 MG PO ×2 (11:33→17:56)
[2022-05-10] MEDS: oxyCODONE HCl Immed Release 5 MG TABLET PO ×2 (11:33→17:57)
[2022-05-10 12:00] VITALS: BP 100/56; PULSE 106; RESP 20; TEMP 37; O2SAT 94
--- NOTE | 2022-05-10 13:46 | MHC.CM.PN ---
Addendum entered by Verito Pyle 05/10/22 15:27: [facility] DOES NOT HAVE A BED TODAY REFERRAL EXPANDED, [facility] INDICATES MAYBE TOMORROW BUT CURRENTLY THERE ARE NO CONFIRMED BED OFFERS. PT IS READY TO DC ONCE PLACEMENT IS SECURED Original Note: CM CALLED PTS PRIMARY CONTACT/KIER HAND, [place] [phone] WHO CONFIRMS SHE IS NOT THE PTS GUARDIAN. SHE IS HIS HCP THIS INFORMATION WAS SENT TO [facility] AWAITING RESPONSE RE BED OFFER FOR TODAY
--- NOTE | 2022-05-10 15:20 | HO.PM.IMPN ---
Subjective Subjective Date of Service: 05/10/22 Interval History: Doing well postop day 2. Pain control adequate. Review of Systems Denies chest pain Denies shortness of breath Denies nausea vomiting diarrhea Denies fever chills Physical Exam Vital Signs: Vital Signs: Last Vital Signs Temp 98.6 F 05/10/22 12:00 Pulse 106 H 05/10/22 12:00 Resp 20 05/10/22 12:00 BP 100/56 L 05/10/22 12:00 Pulse Ox 94 05/10/22 12:00 O2 Del Method 05/10/22 12:00 O2 Flow Rate 3 05/09/22 20:00 BMI result Body Mass Index 26.4 Const: Other: More awake; answers questions appropriately Resp: Other: Clear to auscultation bilaterally no rales rhonchi or wheezes Cardio: Other: Tachycardia improved; No S4; positive S1-S2; no S3 murmurs rubs or gallops. . . Tachycardia Extrem: Other: No edema bilaterally Objective Data Active Medications Acetaminophen (Acetaminophen 325 Mg Tablet) 650 mg PO Q6H PRN PRN Reason: Pain, Mild (Pain Scale 1-3) Last Admin: 05/10/22 11:33 Dose: 650 mg Documented By: HERI Enoxaparin Sodium (Enoxaparin Sodium 40 Mg/0.4 Ml Syringe) 40 mg SUBCUT Q24H [facility] Last Admin: 05/09/22 15:19 Dose: 40 mg Documented By: JAMES Ceftriaxone Sodium 1 gm/ (Sodium Chloride) 50 mls @ 100 mls/hr IV Q24H [facility] Last Infusion: 05/09/22 20:42 Dose: 0 mls/hr Documented By: ERNIE Sodium Chloride (Ns) 1,000 mls @ 125 mls/hr IVCONT .Q8H [facility] Last Admin: 05/10/22 10:09 Dose: Not Given Documented By: HERI Non-Admin Reason: IV Running Levetiracetam (Levetiracetam 500 Mg Tablet) 500 mg PO BID [facility] Last Admin: 05/10/22 10:08 Dose: 500 mg Documented By: HERI Metoprolol Tartrate (Metoprolol Tartrate 25 Mg Tablet) 25 mg PO BID [facility]; Protocol Last Admin: 05/10/22 10:09 Dose: 25 mg Documented By: HERI Morphine Sulfate (Morphine Sulfate 4 Mg/Ml Cartridge) 3 mg IVPUSH Q3H PRN; Protocol PRN Reason: Pain, Severe (Pain Scale 7-10) Last Admin: 05/09/22 22:41 Dose: 3 mg Documented By: ERNIE Multivitamins/Vitamin C (Multivitamin Tablet) 1 tab PO DAILY [facility] Last Admin: 05/10/22 10:09 Dose: 1 tab Documented By: HERI Omeprazole (Omeprazole 40 Mg Capsule.Dr) 40 mg PO DAILY@0630 [facility] Last Admin: 05/10/22 05:51 Dose: 40 mg Documented By: ERNIE Ondansetron HCl (Ondansetron Hcl 4 Mg/2 Ml Vial) 4 mg IVPUSH Q8H PRN PRN Reason: Nausea and Vomiting Last Admin: 05/07/22 09:33 Dose: 4 mg Documented By: FRANSICO Ondansetron HCl (Ondansetron Hcl 4 Mg/2 Ml Vial) 4 mg IVPUSH Q4H PRN PRN Reason: Nausea and Vomiting Oxycodone HCl (Oxycodone Hcl Immed Release 5 Mg Tablet) 5 mg PO Q6H PRN PRN Reason: Pain, Moderate (Pain Scale 4-6 Last Admin: 05/10/22 11:33 Dose: 5 mg Documented By: HERI Pharmacy Consult (Consult Rx Perform Med Rec) 1 each MISCELLANE ONCE PRN PRN Reason: Consult order Sodium Chloride (0.9 % Sodium Chloride Flush 3 Ml Syringe) 3 ml IVFLUSH QSHIFT [facility] Last Admin: 05/10/22 10:09 Dose: Not Given Documented By: HERI Non-Admin Reason: IV Running Trazodone HCl (Trazodone Hcl 100 Mg Tablet) 100 mg PO BEDTIME [facility] Last Admin: 05/09/22 20:06 Dose: 100 mg Documented By: ERNIE Labs CBC & Chem 7: 05/10/22 06:15 05/10/22 06:15 Labs: Laboratory Results - last 24 hr 05/10/22 05/10/22 06:15 06:15 MCV 91.0 MCH 30.2 MCHC 33.2 RDW 11.9 Plt Count 270 MPV 8.7 L Immature Gran % (Auto) 0.6 H Neut % (Auto) 76.2 H Lymph % (Auto) 9.[address] [facility] % (Auto) 11.4 H Eos % (Auto) 1.9 Baso % (Auto) 0.2 Lymph # (Auto) 0.[address] [facility] # (Auto) 0.6 Eos # (Auto) 0.1 Baso # (Auto) 0.0 Abs Immat Gran (auto) 0.03 Absolute Neuts (auto) 4.0 Absolute Nucleated RBC 0.000 Nucleated RBC % (auto) 0.0 Anion Gap 10 L Estim Creat Clear Calc 85.5 Estimated GFR > 60 Fasting Glucose 114 H Calcium 7.3 L D Total Bilirubin 0.5 AST 57 H ALT 24 Alkaline Phosphatase 55 Total Protein 5.1 L Albumin 2.7 L Microbiology Microbiology Results: Microbiology 05/08/22 08:10 Blood Culture - Preliminary Blood - Venous No growth after 48 hours. 05/08/22 08:10 Blood Culture - Preliminary Blood - Venous No growth after 48 hours. 05/07/22 20:53 Blood Culture - Preliminary Blood - Venous No growth after 48 hours. 05/07/22 20:53 Blood Culture - Preliminary Blood - Venous No growth after 48 hours. Assessment and Plan (1) Closed fracture of neck of left femur: Status: Acute (2) Sinus tachycardia: Status: Acute (3) Epilepsy: Status: Acute Plan 66 yo M with a PMH of Epilepsy, henriquez's esophagus, legal blindness, intellectual disability who presents to the ED with left hip pain and fracture which began after what appears to be a mechanical fall. Patient will be admitted for further evaluation. 1. Left femoral neck fracture -postop course as poor Orthopedics 2. Seizure disorder -no further seizures since admission -continue oral Keppra 3. Tachycardia -improved with beta-blockade -adjust therapies as clinically indicated - DNR DNI Pneumatics Will require ongoing hospitalization for treatment of tachycardia Quality Stroke Does the patient have a stroke diagnosis?: No VTE Prior VTE?: No VTE Risk Level:: Medical - moderate - high VTE Device Contraindication: N/A - Device Ordered VTE Drug Contraindication: Treatment Not Indicated
[2022-05-10 15:25] VITALS: BP 101/56; PULSE 95; RESP 16; TEMP 37.3; O2SAT 96
--- NOTE | 2022-05-10 16:57 | PM.EVENT ---
Event Note Date of Service: 05/10/22 Event Note: Called to see patient after he slid off the chair to the floor. Patient back to bed with tenderness over the left hip. X-ray pending will alert Ortho. Patient hemodynamically stable
[2022-05-10] MEDS: Enoxaparin Sodium 40 MG/0.4 ML SYRINGE SUBCUT (16:59)
--- NOTE | 2022-05-10 18:37 | PC.NURSE ---
7115 alarm sounded found on floor sitting next to bed. was sl incont of urine. was awake and verbalizing. Lifted BTB with blanket. MD called to bedside. xray ordered. Has aquacell dsg intact on left fhip. able to move legs. Denies hitting head. Ice applied.
--- NOTE | 2022-05-10 18:40 | PM.EVENT ---
Event Note Date of Service: 05/10/22 Event Note: called for patient in asystole/ possible cardiac arrest evaluated patient was in asystole , no pulses or obtainable blood pressure, tried atropin /nrbm -patient did not respond . patient is dnr/dni so pronaunced at 18:34 pm physical exam: pupil-fixed and dilated no breathing or heart sounds no pulses caortid or femoral family updated .
--- NOTE | 2022-05-10 20:44 | PC.NURSE ---
1800 facial grimacing noted. pain med given crushed in applesauce. Supper offered, refused at this time.
--- NOTE | 2022-05-10 20:46 | PC.NURSE ---
1819 asystole noted on monitor. code called. Found unresponsive, agonal breathing. Noted to be DNR/DNI Dr Miller at bedside. Meds given per order. and charted. Grounds Maintenance Worker present. Family called, Beatriz, guardian, notified of present condition. agrees with DNR Beatriz in and spoke with Dr Miller and RN.
--- NOTE | 2022-05-10 23:11 | PC.NURSE ---
1819pm Pediatric Dental Assistant at Nurses station when noted Patient went Asystole on Monitor Hr was 33, went to Patient's bedside patient noted with Agonal breathing Patient DNI/ Dnr, Patient given 3 doses of Atropine Code sheet filled out. Patient remain with asystole rhythm,. Patient pronounced at 1834pm, Family / Guardian notified that patient had change in mental status and hr was 30's they were notified that patient was declining and she was in her way in. support given to Family at bedside.
--- NOTE | 2022-05-11 16:00 | MHC.PIE ---
Family member, Ilia Osman, requesting autopsy. HCP Beatriz Correa, declining autopsy. [facility] pathologist, Dr. Velasco, contacted and case reviewed by phone. Case was declined d/t HCP declination. HCP notified of this decision. Patient accepted by [facility] for tissue donation. Body released to [facility] rep at 16:00 05/11/22.
--- NOTE | 2022-05-13 08:05 | P.DN_ITS ---
Discharge Sum: Prov Provider Primary care physician: Pasha Ho MD Consults: 05/06/22 12:49 Consult to Orthopedics Routine Consulting Provider: Jeannine Gibson Reason for consultation: hip fx 05/06/22 13:05 Consult to Cardiology Routine Consulting Provider: Antonio Eli Reason for consultation: LAFB on EKG (no prior ekg to compare), admitted for hip fx, pre-op eval Discharge Sum: Diag Contributing Factors (1) Closed fracture of neck of left femur: (2) Sinus tachycardia: (3) Epilepsy: Discharge Sum: Summary Date and Time Date of admission: 05/06/22 12:49 Date of : 05/10/22 Time of : 18:34 Summary Details: 66 yo M with a PMH of Epilepsy, intellectual disability (per ED documentation), Fountain's esophagus, legal blindness, who has lives with his nonfarm animal caretaker / guardian who presented to the ED with complaints of L hip pain which began shortly before presentation. Due to the patient's baseline mental status, history is obtained from him + the caregiver. Per caregiver, the patient was found on the side of his bed. THe patient himself reports, overnight, he went to get a glass of water and ended up falling out of the bed. Per caregiver, the patient had woken up earlier in the middle of the night to urinate. When he was found after the fall -- both of his feet were in 1 pant leg and hence it was fel t that this was the reason for his fall. There are no reports of seizure type activity and per the caregiver, the patient's seizure are triggered by loud sounds and happend very infrequently. He is on Keppra and Vimpat for this. THere are no reports of CAD. No anginal symptoms. No fevers or chills. He has been vaccinated for COVID. Upon arrival to the ED, imaging studies showed a L fem neck fx with medical angulation. Ortho was consulted and recommended admission to medicine. He was also noted to be mildly hyponatremic and has been given 1L NS. Hospital Course Morning after admission in ER, patient remained tachycardic. Given volume repletion and pain medicine and attempt to discern etiology of tachycardia. Patient was able to verbalize relief with pain meds however remained tachycard ic. Consult was placed to Cardiology and subsequently a 2D echo was done which failed to demonstrate wall motion abnormalities; LVEF was slightly hyperdynamic. Patient was afebrile; given fracture a CTA was done to rule out a pulmonary emboli. CTA was read as indeterminate as there was a great deal of motion artifact. He was maintained on telemetry with IV fluids and pain management. On 05/07, discussion between Cardiology/medicine/anesthesia. . . [place] that risk of waiting on hip repair was too great and the patient could undergo ORIF (high risk). The patient tolerated the procedure well but remained slightly tachycardic. Pain was well control per patient. Given the indeterminate CTA of the lungs, a perfusion scan was obtained to rule out PE. Ultimately, perfusion scan was negative for PE. The patient was then beta blocked with adequate response and is tachycardia. The evening of 05/10, patient was noted to have fallen. He was assessed after being placed back in bed and he had only mild operative site discomfort. His cognition was at baseline and he was able to adequately states his pain level and verify he did not hit his head. A portable x-ray of his left hip failed to demonstrate any abnormalities in the prosthesis. He continued to be monitor on telemetry. Same evening (05/10) received call that patient was asystolic. DNR/DNI status confirmed with guardian. Patient was pronounced 05/10/2022 at 18:34. Guardian notified. .. All questions answered Additional Data Attending physician: Britton Zhang, DO
--- NOTE | 2022-05-14 12:30 | W.PM.OPN ---
Operative Note Operative Note Date of Service: 05/08/22 Narrative: Date of Service: 05/08/22 Pre-op diagnosis: Left femoral neck fracture Post-op diagnosis: same Procedure: Left hip hemiarthroplasty Implants: Aguilar Accoalde2#4 127 deg with +0/47 bipolar Surgeon: Joaquín Chavira MD Anesthesia: GETA, GLMA and local Was an Is Support Analyst used for this Procedure?: No Estimated blood loss (mL): 200 IV fluids (mL): 600 Pathology: other Condition: stable Disposition: PACU Procedure in detail: Patient was brought to the operative room placed in the lateral decubitus position. All bony prominences were well padded and the was prepped and draped in standard sterile fashion. IV antibiotics per weight were administered and a time-out was called to identify proper site proper procedure proper surgeon. Radiographs were available and confirmed. I began by making a curvilinear incision over the posterolateral aspect of the greater trochanter. Dissection was taken down to the tensor fascia which was incised in line with the incision and a Charnley retractor was placed. The hip was internally rotated and the external rotators were identified. All vessels in the area were cauterized and a full-thickness capsular/external rotator layer was developed in a hockey-stick fashion starting just proximal to the piriformis. This layer was tagged and the displaced femoral neck fracture was identified. THere was an anterior 1/3 of the greater trochanter that was fractured as well but the majority of the abductor mechanism was intact. Clean-up cuts was performed while protection the posterolateral soft tissues and the head was removed and measured ( 47 mm) on the back table. I then copiously irrigated the acetabulum and removed all bony fragments. Once this was done I used a cookie cutter to lateralize and a Charnley awl to identify the canal and then sequentially broached up to a 127 deg #4. I then trialed with a standard head and a bipolar component matching the femoral head size. I was satisfied with the range of motion and stability and length. Therefore I removed all instrumentation and copiously irrigated. I then placed my final femoral implant and then retrialed. I was satisfied with the +0/47implant. My final bipolar componenet were then placed. I closed the capsular layer with FiberWire and then, after a three minute iodine soak. , I performed a layered closure with trace on skin. The patient was placed in sterile dressing extubated brought to recovery room in stable condition there were no known complications.
== END 2022-05-10 18:36 | disposition expired | DRG 522 ==
LOC: HO.ED 12:52 → HO.EDOVER 13:00 → HO.IMC 05-07 15:07
PROVIDERS: Internal Medicine; Nurse Practitioner Family; Orthopaedic Surgery; Admitting Provider Family Medicine; Emergency Provider Emergency Medicine Emergency Medical Services; PCP Family Medicine; Visit Provider Hospitalist
PROC: 0SRS0JA Replacement of Left Hip Joint, Femoral Surface with Synthetic Substitute, Uncemented, Open Approach (ICD-10-PCS; CPT 27125; principal; 2022-05-08 12:30)
DX: S72.002A Fracture of unspecified part of neck of left femur, initial encounter for closed fracture (principal); E87.1 Hypo-osmolality and hyponatremia; Z66 Do not resuscitate; I46.9 Cardiac arrest, cause unspecified; R00.0 Tachycardia, unspecified; E86.1 Hypovolemia; W19.XXXA Unspecified fall, initial encounter; R73.9 Hyperglycemia, unspecified; D64.9 Anemia, unspecified; K22.70 Barrett's esophagus without dysplasia; H54.8 Legal blindness, as defined in USA; G31.84 Mild cognitive impairment of uncertain or unknown etiology; G40.909 Epilepsy, unspecified, not intractable, without status epilepticus; Z20.822 Contact with and (suspected) exposure to COVID-19; Z79.899 Other long term (current) drug therapy
CPT/HCPCS: 36415; 70450; 71045; 71275; 72125; 73501; 73502; 78580; 80048; 80053; 81001; 81003; 83605; 83735; 84484; 85025; 85027; 86850; 86900; 86901; 87040; 87086; 87147; 87635; 88305; 88311; 93005; 93306; 96361; 96374; 97162; 97166; 97530; 99285; A9540; C1758; C1776; J0690; J0696; J1100; J1170; J1650; J1953; J2060; J2250; J2270; J2370; J2405; J3010; Q9957; Q9967